=== PATIENT | male | born 1965 | race Caucasian/White ===

== ENCOUNTER → 2022-11-28 | Outpatient (CLI) | payer OTHER, SELFPAY ==
--- NOTE | 2022-11-28 11:09 | PFT ---
INTRODUCTION: The patient is a 57-year-old male who presents for pulmonary function studies secondary to a diagnosis of asthma. Respiratory therapy reported good patient effort. Bronchodilators were used during testing. INTERPRETATION: Forced expiration spirometry demonstrates no evidence of a large airways obstructive ventilatory defect. There was no significant response to aerosolized bronchodilators. Spirograms are of good quality and plateau normally. The respiratory flow-volume loop appears normal. Body plethysmography was performed and revealed lung volumes to be within normal limits. Diffusing capacity by single breath CO was also within normal limits. IMPRESSION: Grossly normal pulmonary function studies.
== END | disposition home or self-care (01) ==
LOC: PSN 07:58
PROVIDERS: Referring Provider Chiropractor; Visit Provider Chiropractor
DX: J45.998 Other asthma (principal)
CPT/HCPCS: 94060; 94726; 94729

== ENCOUNTER → 2023-03-23 | Outpatient (CLI) | payer OTHER, SELFPAY ==
--- NOTE | 2023-03-23 13:29 | CT_ITS ---
INDICATION: CHRONIC SINUSITIS EXAMINATION: CT FACIAL BONES - CT Maxillofacial W/O Contrast Injection TECHNIQUE: Helically acquired images were obtained of the facial bones. A radiation dose optimization technique was used for this scan. IV Contrast dosage and agent: None. RADIATION DOSAGE (If Supplied By Facility): CTDIvol = ( 33.06 ) mGy, DLP = ( 875.17 ) mGycm COMPARISON: No relevant prior comparison study available FINDINGS: SOFT TISSUES: No focal subcutaneous swelling. No discrete fluid collections. VISUALIZED PARANASAL SINUSES: There is mild opacification of the frontal, ethmoid and maxillary sinuses. There is a round low-attenuation focus within the left maxillary sinus which may reflect a mucous retention cyst or polyp. VISUALIZED MASTOID AIR CELLS: Clear. FACIAL BONES, MANDIBLE AND TMJs: No displaced facial bone fracture. No lytic or blastic abnormality. VISUALIZED DENTITION: No periodontal osseous erosion. ORBITAL CONTENTS: Both globes, extraocular muscles and retrobulbar fat appear unremarkable. CT/Sinus/Facial Bone IMPRESSION: Mild opacification of the frontal, ethmoid and maxillary sinuses consistent with a history of sinusitis. Electronically Signed: Desire Almonte MD at 14:24 EST ,
== END | disposition home or self-care (01) ==
LOC: CT 13:28
PROVIDERS: Referring Provider Otolaryngology; Visit Provider Otolaryngology
DX: J32.8 Other chronic sinusitis (principal); J30.89 Other allergic rhinitis
CPT/HCPCS: 70486

== ENCOUNTER → 2023-05-20 | Outpatient (CLI) | payer OTHER, SELFPAY ==
--- NOTE | 2023-05-20 10:42 | ECHOD_ITS ---
Reason For Study: Enlarged Heart, CP Procedure This was a 2D Doppler, Color Flow transthoracic echocardiogram. Exam performed in department. Left Ventricle Normal LV size. Left ventricular systolic function is normal. The estimated ejection fraction is 65 %. Stage 1 diastolic dysfunction. No regional wall motion abnormalities noted. Right Ventricle Normal RV size. Normal systolic function. Atria Normal left atrium. Normal right atrium. Bubble contrast study negative for right to left interatrial shunt. Mitral Valve Normal mitral valve. Mild (1+) eccentric mitral valve insufficiency. Tricuspid Valve Normal tricuspid valve. Mild tricuspid valve insufficiency. Pulmonary artery systolic pressure is 26 mmHg. Aortic Valve Normal aortic valve. Pulmonic Valve Normal pulmonic valve. Great Vessels Normal aortic root. The pulmonary artery is normal size. Normal inferior vena cava. Pericardium/Pleural No pericardial effusion. MMode/2D Measurements & Calculations LVIDd: 4.9 cm IVSd: 0.92 cm Ao root diam: 3.3 cm LVIDs: 3.3 cm LVPWd: 0.92 cm LA dimension: 3.8 cm RVDd: 4.1 cm FS: 32.9 % LAV(MOD-bp): 57.8 ml LVAd ap4: 32.9 cm2 SV(MOD-sp4): 65.3 ml LAV(MOD-bp) Indexed: 28.1 ml/m2 LVLd ap4: 8.5 cm LAV(MOD-sp2): 65.7 ml EDV(MOD-sp4): 103.2 ml LAV(MOD-sp4): 47.7 ml EDV(sp4-el): 108.1 ml LVAs ap4: 18.4 cm2 LVLs ap4: 7.4 cm ESV(MOD-sp4): 37.9 ml ESV(sp4-el): 38.9 ml EF(MOD-sp4): 63.3 % EF(sp4-el): 64.0 % SV(sp4-el): 69.2 ml LA A4 area: 17.7 cm2 RA A4 area: 16.2 cm2 TAPSE: 2.1 cm Time Measurements MV dec time: 0.17 sec Doppler Measurements & Calculations MV E max vicente: 70.1 cm/sec Lat Peak E' Vicente: 14.9 cm/sec Med Peak E' Vciente: 10.7 cm/sec MV A max vicente: 73.1 cm/sec E/E' lat: 4.7 E/E' med: 6.6 MV E/A: 0.96 MV V2 max: 67.0 cm/sec MV P1/2t max vicente: 67.4 cm/sec Ao V2 max: 137.4 cm/sec MV max P.8 mmHg MV P1/2t: 52.0 msec Ao max P.6 mmHg MV V2 mean: 35.1 cm/sec MV dec slope: 379.5 cm/sec2 Ao V2 mean: 91.9 cm/sec MV mean P.58 mmHg Ao mean P.9 mmHg MV V2 VTI: 19.5 cm MVA(P1/2t): 4.2 cm2 Ao V2 VTI: 33.1 cm AV (velocity ratio): 0.81 LV V1 max: 116.5 cm/sec MR max vicente: 524.4 cm/sec PA V2 max: 101.5 cm/sec LV V1 max P.4 mmHg MR max P.0 mmHg LV V1 mean P.0 mmHg LV V1 mean: 80.9 cm/sec LV V1 VTI: 26.9 cm PI dec slope: 115.2 cm/sec2 TR max vicente: 243.3 cm/sec TR max P.7 mmHg ECHO/Echo Complete Interpretation Summary Normal LV size. Left ventricular systolic function is normal. The estimated ejection fraction is 65 %. Stage 1 diastolic dysfunction. Pulmonary artery systolic pressure is 26 mmHg. Bubble contrast study negative for right to left interatrial shunt. Ordering Physician: Jose Hinkle Referring Physician: Jose Hinkle Performed By: Gopi Rogers RCS
--- NOTE | 2023-05-20 10:43 | EKG12_ITS ---
Test Reason : CP ENLARGED HEART Blood Pressure : / mmHG Vent. Rate : 065 BPM Atrial Rate : 065 BPM P-R Int : 170 ms QRS Dur : 098 ms QT Int : 400 ms P-R-T Axes : 073 051 060 degrees QTc Int : 416 ms Normal sinus rhythm Normal ECG Confirmed by EDITH PERLA, HEVER ([id number]), continuity editor YOLIS CURIEL ([id number]) on 05/21/2023 7:04:45 AM Referred By: Jose Hinkle Confirmed By:HEVER SHARMA MD
--- OUTSIDE RECORDS SUMMARY | 2023-05-20 11:00 | XMS RPT_ITS | CCD ---
Author Name Unknown Address [address] [place] [address] Organization [facility] Care Team Providers Care Product Development Assistant Name Role Phone Dr. Duke Wagner Attending Unavailable Ms. Lynda Hurtado Primary Care Unavaila damian PROVIDER, UNKNOWN Attending Unavailable PROVIDER, UNKNOWN Admitting Unavailable GIGI MARRUFO Referring Unavailable Lynda Hurtado CNP Primary Care Provider LYNDA HURTADO Primary Care Unavailable PETAR AGUSTIN Attending Unavail LYNDA Ayala Primary Care Unavailable PETAR AGUSTIN Referring Unavail able PETAR AGUSTIN Admitting Unavail able LYNDA HURTADO Primary Care Unavailable JING RAVI Attending Unavailable JESUS COPELAND Attending Unavailab LYNDA Steele Primary Care Unavailable Allergies Allergy Classification Reported Allergen(s) Allergy Type Date of Onset Reaction(s) Facility (6 sources) Amoxicillin / Clavulanate; Translations: [AMOXICILLIN-POT CLAVULANATE] Drug Allergy 01-07-2021 GI Intolerance [facility] (6 sources) metroNIDAZOLE; Translations: [METRONIDAZOLE IN NACL (ISO-OS)] Drug Allergy 01-10-2021 Rash [facility] Medications Current Medications Medication Drug Class(es) Dates Sig (Normalized) Sig (Original) amLODIPine 5 mg oral tablet (3 sources) Dihydropyridine Calcium Channel Brandyn take 1 tablet by mouth once daily amLODIPine (NORVASC) 5 MG tablet Take 1 (one) tablet (5 mg total) by mouth daily . 0 Active ascorbic acid 100 mg oral tablet (3 sources) Vitamin C take 1 tablet by mouth once daily ascorbic acid, vitamin C, (vitamin C) 100 MG tablet Take 1 (one) tablet (100 mg total) by mouth daily . 0 Active dicyclomine hydrochloride 20 mg oral tablet (3 sources) Anticholinergic Start: 01-10-2021 take 1 tablet by mouth four times daily before mealtime dicyclomine (BENTYL) 20 mg tablet Take 1 (one) tablet (20 mg total) by mouth 4 (four) times a day before meals and nightly . 120 tablet 0 01/10/2021 Active ergocalciferol 1.25 mg oral capsule (3 sources) Provitamin D2 Compound take 1 capsule by mouth every week ergocalciferol (Vitamin D2) 1,250 mcg (50,000 unit) capsule Take 1 (one) capsule (50,000 Units total) by mouth once a week . 0 Active omega-3 fatty acids/fish oil (fish oil-omega-3 fatty acids) 300-1,000 mg capsule (3 sources) take 2 capsules by mouth once daily omega-3 fatty acids/fish oil (fish oil-omega-3 fatty acids) 300-1,000 mg capsule Take 2 (two) capsules by mouth daily . 0 Active ondansetron 4 mg disintegrating oral tablet (3 sources) Serotonin-3 Receptor Antagonist Start: 01-10-2021 take 1 tablet by mouth every eight hours as needed ondansetron (Zofran ODT) 4 MG disintegrating tablet Dissolve 1 (one) tablet (4 mg total) on top of tongue every 8 (eight) hours as needed . 20 tablet 0 01/10/2021 Active predniSONE 20 mg oral tablet (3 sources) Start: 12-08-2022 predniSONE (DELTASONE) 20 MG tablet Indications: Acute cough , Wheezing Take 2 tablets daily for 5 days. . 10 tablet 0 12/08/2022 Active rosuvastatin calcium 20 mg oral tablet (3 sources) HMG-CoA Reductase Inhibitor take 1 tablet by mouth once daily rosuvastatin (CRESTOR) 20 MG tablet Take 1 (one) tablet (20 mg total) by mouth daily . 0 Active ubidecarenone 30 mg oral capsule (3 sources) take 1 capsule by mouth once daily co-enzyme Q-10 30 mg capsule Take 1 (one) capsule (30 mg total) by mouth daily . 0 Active Problems Active Problems Problem Classification Problem Date Documented Date Episodic/Chronic Asthma (1 source) Asthma; Translations: [Unspecified asthma, uncomplicated] 01-16-2023 Chronic Noninfectious gastroenteritis (2 sources) Noninfective gastroenteritis and colitis, unspecified; Translations: [Noninfective gastroenteritis and colitis, unspecified] Onset: 10-13-2023 Episodic Nonspecific chest pain (4 sources) Atypical chest pain; Translations: [Other chest pain] Onset: 12-08-2022 12-08-2022 Episodic Osteoarthritis (1 source) Primary osteoarthritis, right wrist; Translations: [Primary osteoarthritis, right wrist] Onset: 07-04-2021 Chronic Other circulatory disease (2 sources) Elevated blood pressure; Translations: [Elevated blood-pressure reading, without diagnosis of hypertension] 12-08-2022 Episodic Other circulatory disease (2 sources) Elevated blood-pressure reading, without diagnosis of hypertension; Translations: [Elevated blood-pressure reading, without diagnosis of hypertension] Onset: 12-08-2022 Episodic Other lower respiratory disease (1 source) Dyspnea, unspecified; Translations: [Dyspnea, unspecified] Onset: 04-02-2022 Episodic Other lower respiratory disease (2 sources) Cough; Translations: [Acute cough] 12-08-2022 Episodic Other lower respiratory disease (3 sources) Wheezing; Translations: [Wheezing] Onset: 12-08-2022 12-08-2022 Episodic Other lower respiratory disease (1 source) Wheezing; Translations: [Wheezing] Onset: 12-08-2022 Episodic Other nervous system disorders (2 sources) Carpal tunnel syndrome, right upper limb; Translations: [Carpal tunnel syndrome, right upper limb] Onset: 07-04-2021 Chronic Unclassified (1 source) Acute cough; Translations: [Acute cough] Onset: 12-08-2022 Past or Other Problems Problem Classification Problem Date Documented Da te Episodic/Chronic Other connective tissue disease (1 source) Ganglion, right wrist; Translations: [Ganglion, right wrist] Onset: 07-04-2021 Episodic Other connective tissue disease (1 source) Other specified disorders of tendon, right wrist; Translations: [Other specified disorders of tendon, right wrist] Onset: 07-04-2021 Episodic Unclassified (1 source) Acute cough; Translations: [Acute cough] Onset: 12-08-2022 Results Test Name Value Interpretation Reference Range Facil ity Vital Signs Date Time Vital Sign Value Performing Clinician Alyson osborne 12-08-2022 14:15-0400 Diastolic blood pressure 83 mm[Hg] Petar Agustin CNP Work Phone: [facility] Encounters Encounter Date Encounter Type Care Provider Facility Start: 02-13-2023 End: 02-13-2023 Emergency department patient visit LYNDA MORLEY [facility] Start: 01-31-2023 ambulatory JESUS OLIVAS SIVAKUMARYANIRAMAURICE O [facility] Ambulatory Start: 01-16-2023 Orders Only Jesus Olivas Palma win [employer] Work Phone: [facility] Pulmonary Physicians Procedures Date Procedure Procedure Detail Performing Clinician Start: 12-08-2022 Radiologic exam ches t 2 views Petar Agustin [employer] Work Phone: Plan of Treatment Date Care Activity Detail Author Start: 01-02-2023 Influenza vaccination Sequential Influenza Vaccine (#1) [facility] Start: 07-07-2015 Administration of herpes zoster vaccine Zoster Vaccines (1 of 2) [facility] Start: 07-07-2015 Screening for malignant neoplasm of colon Flexible sigmoidoscopy [facility] Start: 07-07-1983 Hepatitis C screening Hepatitis C Screening [facility] Start: 1980 HIV screening HIV Screening [facility] Start: 1977 Depression screening using PHQ-9 (Patient Health Questionnaire 9) score Depression Screening (PHQ-2/9) [facility] Start: 1968 History and physical examination, annual for health maintenance Wellness Visit [facility] Start: 01-06-1966 COVID-19 Vaccine (#1) COVID-19 Vaccine (#1) [facility] Start: 1965 Prostate specific antigen measurement PSA Level [facility] Start: 1965 Screening for malignant neoplasm of colon [facility] Start: 1965 Tetanus vaccination Tetanus: Every 10yrs [facility] End: 01-17-2024 Complete PFT with Pre and Post Bronchodilator Complete PFT with Pre and Post Bronchodilator PFT Routine Asthma, unspecified asthma severity, unspecified whether complicated, unspecified whether persistent 1 Occurrences starting 01/16/2023 until 01/17/2024 [facility] Work Phone: Payers Date Payer Category Payer Unknown [id number] 2021 Unknown [id number] 1965 Unknown [id number] 1965 Unknown [id number] 1965 Unknown [id number] [id number]. [id number] 1965 Unknown [id number] [id number]. [id number] 1965 Unknown [id number] [id number]. [id number] Social History Date Type Detail Facility Start: 12-08-2022 Tobacco smoking status NHIS Ex-smoke r [facility] of tobacco use [facility] Start: 12-08-2022 Tobacco use and exposure Smokeless t obacco non-user [facility] Start: 12-08-2022 Alcohol intake Current drinke r of alcohol (finding) [facility] Start: 06-12-2021 End: 12-08-2022 History of Social function [facility] Start: 06-12-2021 End: 12-08-2022 Tobacco use panel [facility] Start: 1965 Sex Assigned At Not on file [facility] Start: 01-07-2021 Gender identity Identifies as male gender (finding) [facility] Start: 01-07-2021 Sexual orientation Choose not to dis close [facility] Instructions 12-08-2022 Patient InstructionsAttachments Note Date & Type Note Facility 12-08-2022 Instructions Petar Agustin CNP - 12/08/2022 2:12 PM EDT Thank you for choosing [place] for your healthcare needs today. Thank you for your service. Your chest is negative for infiltrates. I sent in prednisone. Take early with food to prevent insomnia and indigestion. Continue use of your inhaler. Follow up with your doctor for elevated blood pressure reading. Follow up as needed persistent/worsening of cough. The following attachments cannot be sent through Care Everywhere.Cough (Persian)documented in this encounter [facility] History of Present illness Narrative 12-08-2022 Petar Agustin CNP - 12/08/2022 1:35 PM EDT Note Date & Type Note Facility 12-08-2022 History of Presen t illness Narrative Images from the original note were not included. Patient Name: [facility] Urgent Care Location: [facility] [address] [place] [id number] Date Of : Date Of Visit: 1965 12/08/2022 MRN# Provider: [id number] Petar Agustin CNP Chief Complaint Patient presents with URI Congestion, productive cough, x 2 weeks, worsening over cough, hx of bronchitis, fatigue, drainage, tightness in chest, burning in chest Assessment & Plan 1. Atypical chest pain XR Chest AP/PA and LAT 2. Acute cough XR Chest AP/PA and LAT predniSONE (DELTASONE) 20 MG tablet 3. Wheezing XR Chest AP/PA and LAT predniSONE (DELTASONE) 20 MG tablet 4. Elevated blood pressure reading No follow-ups on file. Medical Decision Making Client is pleasant, non-toxic in NAD with report of worsening cough for several weeks. Productive at times with wheezing and SOB. Using albuterol. [place] sent client to clinic for chest film. Blood pressure elevated in clinic. Reviewed allergies. Former smoker. See H&P Chest XR - appears normal Prednisone, (Albuterol) Additional Clinical Comments X-ray Documentation: I have personally reviewed the images. My impression is no infiltrates. Radiology over-read pending. Instructed on use/AE of medication. Follow up PCP elevated blood pressure reading. See AVS Subjective 57 y.o. male presents with URI (Congestion, productive cough, x 2 weeks, worsening over cough, hx of bronchitis, fatigue, drainage, tightness in chest, burning in chest ) Client ill for two weeks with productive cough and chest congestion, fatigue and drainage. URI This is a new problem. The current episode started 1 to 4 weeks ago. The problem has been gradually worsening. There has been no fever. Associated symptoms include chest pain, coughing and rhinorrhea. Pertinent negatives include no congestion, sore throat or wheezing. Review Of Systems Review of Systems Constitutional: Positive for fatigue. HENT: Positive for rhinorrhea. Negative for congestion, postnasal drip and sore throat. Respiratory: Positive for cough. Negative for shortness of breath and wheezing. Cardiovascular: Positive for chest pain. Burning in chest with cough. Medical History Past Medical History: Diagnosis Date Diverticulitis High cholesterol Prostatitis Past Surgical History: Procedure Laterality Date APPENDECTOMY CARPAL TUNNEL RELEASE OPEN 2022 RHINOPLASTY TONSILLECTOMY There is no problem list on file for this patient. Social History Social History Tobacco Use Smoking status: Former Smokeless tobacco: Never Vaping Use Vaping Use: Never used Substance Use Topics Alcohol use: Yes Drug use: Never Family History No family history on file. Objective Physical Exam BP (!) 166/96 (BP Location: Right arm, Patient Position: Sitting) Pulse 68 Temp 98.2 F (36.8 C) (Oral) Resp 16 Ht 6' Wt 84.4 kg (186 lb) SpO2 97% BMI 25.23 kg/m Vision/Hearing Exam:No results found. Physical Exam Vitals and nursing note reviewed. Constitutional: General: He is not in acute distress. Appearance: Normal appearance. He is not ill-appearing, toxic-appearing or diaphoretic. HENT: Head: Normocephalic and atraumatic. Right Ear: Tympanic membrane, ear canal and external ear normal. Left Ear: Tympanic membrane, ear canal and external ear normal. Nose: Nose normal. Mouth/Throat: Mouth: Mucous membranes are moist. Pharynx: Oropharynx is clear. Cardiovascular: Rate and Rhythm: Normal rate and regular rhythm. Heart sounds: Normal heart sounds. Pulmonary: Effort: Pulmonary effort is normal. No respiratory distress. Breath sounds: Normal breath sounds. No wheezing or rales. Skin: General: Skin is warm and dry. Neurological: Mental Status: He is alert. Psychiatric: Mood and Affect: Mood normal. Behavior: Behavior normal. Procedure Notes Procedures Results No results found for this or any previous visit (from the past 168 hour(s)). XR Chest AP/PA and LAT Final Result 1. No acute cardiopulmonary disease. Workstation ID: [id number] Orders Placed This Visit Orders Placed This Encounter Procedures XR Chest AP/PA and LAT Medication List At End Of Visit Current Outpatient Medications Medication Sig Dispense Refill amLODIPine (NORVASC) 5 MG tablet Take 1 (one) tablet (5 mg total) by mouth daily . ascorbic acid, vitamin C, (vitamin C) 100 MG tablet Take 1 (one) tablet (100 mg total) by mouth daily . co-enzyme Q-10 30 mg capsule Take 1 (one) capsule (30 mg total) by mouth daily . ergocalciferol (Vitamin D2) 1,250 mcg (50,000 unit) capsule Take 1 (one) capsule (50,000 Units total) by mouth once a week . omega-3 fatty acids/fish oil (fish oil-omega-3 fatty acids) 300-1,000 mg capsule Take 2 (two) capsules by mouth daily . rosuvastatin (CRESTOR) 20 MG tablet Take 1 (one) tablet (20 mg total) by mouth daily . dicyclomine (BENTYL) 20 mg tablet Take 1 (one) tablet (20 mg total) by mouth 4 (four) times a day before meals and nightly . 120 tablet 0 ondansetron (Zofran ODT) 4 MG disintegrating tablet Dissolve 1 (one) tablet (4 mg total) on top of tongue every 8 (eight) hours as needed . 20 tablet 0 predniSONE (DELTASONE) 20 MG tablet Take 2 tablets daily for 5 days. . 10 tablet 0 No current facility-administered medications for this visit. Patient Instructions Thank you for choosing [facility] for your healthcare needs today. Thank you for your service. Your chest is negative for infiltrates. I sent in prednisone. Take early with food to prevent insomnia and indigestion. Continue use of your inhaler. Follow up with your doctor for elevated blood pressure reading. Follow up as needed persistent/worsening of cough. documented in this encounter [facility] Evaluation note Note Date & Type Note Facility documented in this encounter [facility] Evaluation note Note Date & Type Note Facility documented in this encounter [facility] Summary Purpose Family History No Family History Records FoundNo Family History Records FoundNo Family History Records FoundNo Family History Records FoundNo Family History Records Found Advance Directives No Advanced Directives Records FoundNo Advanced Directives Records FoundNo Advanced Directives Records FoundNo Advanced Directives Records FoundNo Advanced Directives Records Found Reason for Referral Specialty Diagnoses / Procedures Referred By Contac t Referred To Contact Pulmonology Diagnoses Asthma, unspecified asthma severity, unspecified whether complicated, unspecified whether persistent Procedures Complete PFT with Pre and Post Bronchodilator Jesus Copeland, EDYTA [address] [address] Referral ID Status Reason Start Date Expiration Date V isits Requested Visits Authorized [id number] Authorized 01/16/2023 01/16/2024 1 1 Additional Source Comments (unrecognized sect ion and content) No Status Records FoundNo Status Records FoundNo Status Records FoundNo Status Records FoundNo Status Records Found INFORMATION SOURCE (unrecogn ized section and content) DATE CREATED AUTHOR AUTHOR'S ORGANIZ ATION 04/04/2022 [facility] DATE CREATED AUTHOR AUTHOR'S ORGANIZ ATION 12/13/2022 [facility] DATE CREATED AUTHOR AUTHOR'S ORGANIZ ATION 02/20/2023 [facility] DATE CREATED AUTHOR AUTHOR'S ORGANIZ ATION 03/04/2023 [facility] Reason for Visit (unrecogniz ed section and content) Care Teams (unrecognized sec tion and content) Product Development Assistant Relationship Specialty Start Date End Date Lynda Hurtado CNP [address] [place] [address] PCP - General Family Medicine 01/07/21 FOR RECORDS PERTAINING TO PATIENTS WHO ARE OR HAVE BEEN ENROLLED IN A CHEMICAL DEPENDENCY/SUBSTANCEABUSE PROGRAM, SOME INFORMATION MAY BE OMITTED. This clinical summary was aggregated from multiple sources. Caution should be exercised in using it in the provision of clinical care. This summary normalizes information from multiple sources, and as a consequence, information in this document may materially change the coding, format and clinical context of patient data. In addition, data may be omitted in some cases. CLINICAL DECISIONS SHOULD BE BASED ON THE PRIMARY CLINICAL RECORDS. [facility] [employer] [facility]. provides no warranty or guarantee of the accuracy or completeness of information in this document.
[2023-05-20 13:07] LABS: AST(SGOT) 28 U/L (15-37); Alanine Aminotransfer ALT/SGPT 33 U/L (16-61); Albumin, Serum 4.1 g/dL (3.2-5.0); Alkaline Phosphatase 78 U/L (45-117); Bilirubin, Direct 0.35 mg/dL (0.00-0.30); Globulin 3.8 g/dL (2.2-4.2); Protein, Total 7.9 g/dL (6.4-8.2)
== END | disposition home or self-care (01) ==
PROVIDERS: Referring Provider Chiropractor; Visit Provider Chiropractor
DX: R07.9 Chest pain, unspecified (principal)
CPT/HCPCS: 36415; 80076; 93005; 93306; A4216

== ENCOUNTER 2024-11-20 12:37 | Emergency (ER) | payer OTHER, SELFPAY ==
[2024-11-20 12:37] VITALS: BP 151/86; PULSE 60; RESP 16; TEMP 36.7; O2SAT 100; BMI 25.6
--- NOTE | 2024-11-20 13:23 | EDS_ITS ---
HPI History of Present Illness Chief Complaint: Eye Problem Informant: patient Onset/Context/Timing Location: Right Eye Onset: Today and Yesterday Context: Gradual Onset Timing: Continuous Current Severity: Mild Maximum Severity: Mild Associated Symptoms Associated Symptoms - Eyes: Foreign body sensation History of injury: No Visual correction: Glasses Narrative Narrative: 59-year-old male with glasses no contacts. Was cutting his grass yesterday. Feels like he has a foreign body in his right eye. Says irritated. Denies any vision change. No direct trauma that he is aware of. Does not wear contacts nor does he have any eye surgery. Prior similar symptoms: No Recent Illness/Hospitalization: No PFSH PFSH Medical History no medical history no medical history Allergy/AdvReac Type Severity Reaction Status Date / Time amoxicillin (From Augmentin) Allergy Intermediate Nausea/Vom/ Verified 11/20/24 12:38 Diarrhea clavulanic acid (From Allergy Intermediate Nausea/Vom/ Verified 11/20/24 12:38 Augmentin) Diarrhea metronidazole (From Flagyl) Allergy Intermediate Rash Verified 11/20/24 12:38 Social History Smoking Status: Never smoker ROS ROS ED Constitutional Constitutional ED: Denies fever(s) Eyes Eyes: Denies blurry vision ENT ENT ED: Denies ear pain Cardiovascular Cardiovascular: Denies chest pain or palpitations Respiratory/Chest Respiratory/Chest: Denies cough or dyspnea Gastrointestinal Gastrointestinal: Denies abdominal pain Genitourinary Genitourinary ED: Denies dysuria or hematuria Musculoskeletal Musculoskeletal: Denies arthralgias Integumentary Denies abscess or Abrasions Psychiatric Psychiatric: Denies anxiety Endocrine Endocrinology: Denies polydipsia or polyphagia Hematologic/Lymphatic Hematologic/Lymphatic: Denies easy bleeding or easy bruising Allergic/Immunologic Allergic/Immunologic ED: Denies mouth swelling, tongue swelling or urticaria EXAM Physical Exam Narrative Exam Narrative: 59-year-old male sitting upright in bed. Vitals slightly elevated. H EENT exam pupils round reactive light extra motions are intact. There is no watering. No swelling. No discharge. No orbital or periorbital swelling. No cellulitis. No preauricular lymphadenopathy. Upper and lower lids are unremarkable. Const Vital Signs: 11/20/24 12:37 Temperature 98.1 F Temperature Source Oral Pulse Rate 60 Respiratory Rate 16 Blood Pressure 151/86 H Blood Pressure Mean 107 Pulse Ox 100 Oxygen Delivery Method Room Air Positive well nourished and well developed; Negative for cachectic, contractures or unkempt General Appearance ED: well developed and NAD; Negative for unkempt, cachectic or contractures Nutritional Appearance: Negative for cachectic HEENT atraumatic Neck no lymphadenopathy, supple and no JVD Resp normal respiratory effort, no retractions, no use of accessory muscles and clear to auscultation bilaterally Cardio regular rate, regular rhythm, S1 normal heart sound, S2 normal heart sound and no murmurs GI non-tender, non-distended and no masses Back/Spine no CVA tenderness Extremity normal to inspection General Extremety ED: Negative for edema or other findings General Extremity: Negative for edema or other findings Neuro oriented x3, CN's II-XII intact bilaterally, moves all extremities and no sensory deficits noted Sensorium / Orientation: alert, oriented to person, oriented to place and orient ed to time Motor Exam: strength 5/5 throughout Psych Appearance: Negative for unkempt Skin no wounds Lesions: no lesions Rashes: no rashes MDM MDM MDM Narrative Medical decision making narrative: 59-year-old male right eye possible foreign body. Tetracaine slit-lamp exam of the right eye with fluorescein stain. Examination of his right eye. I placed tetracaine and then foreseen. He had small speck of either dirt or something under his right eyelid that I removed. A small corneal abrasion around 9:00. There is no perforation. No ulcer. There is some mild redness due to irritation on the lateral aspect of his right sclera. No purulent discharge. History & Record Review Discussion w/independent historian: Patient and Family Discharge Plan Triage Chief Complaint: Eye Problem ED Provider: Ángel Villa Dx/Rx/DC Orders Clinical Impression: Foreign body in eyeball, right, Abrasion, corneal Instructions: ED Corneal Abrasion, ED Corneal Foreign Body, Removed [facility] Care Provider: [facility] Referrals: Jose Fernandez MD [Med Staff - Active Staff] - 1-2 Days if not improving [facility],[place] [Primary Care Provider] - Activity Restrictions/Additional Instructions: Antibiotic ointment twice a day is put on your lower lid small amount. Helps lubricate the eye and prevent secondary infection. The tetracaine drops she can use in the next 24 hours after that you to stop use them because it can retard healing. That is for discomfort. Use sunglasses to prevent glare. Follow-up with the eye doctor if not getting better. I did remove a small foreign body and you have a small corneal abrasion around 9:00. That should heal quickly in the next several days. Print Language: Citizen Of [place] Disposition Disposition: Home, Self Care
[2024-11-20] MEDS: Tetracaine 0.5% Ophthalmic Bottle 1 DRP RIGHT EYE (13:36)
[2024-11-20 14:25] VITALS: BP 161/77; PULSE 78; RESP 16; TEMP 36.3; O2SAT 100
[2024-11-20] MEDS: Bacitracin/Polymin B Sulfate 3.5 GM OPTH.TUBE 1 APPLIC RIGHT EYE (14:26)
--- OUTSIDE RECORDS SUMMARY | 2024-11-20 14:29 | XMS RPT_ITS | CCD ---
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 Simba Wagner Attending Unavailable Ms. Lynda Hurtado Primary Care Unavaila ble PROVIDER, UNKNOWN Attending Unavailable PROVIDER, UNKNOWN Admitting Unavailable GIGI MARRUFO Referring Unavailable Dr. Jose Hinkle Referring Provider Dr. Jose Hinkle Other Provider [place] Primary Care Provider UnavailDr. Charles García Attending Provider Lynda Hurtado CNP Primary Care Provider LYNDA HURTADO Primary Care Unavailable PETAR AGUSTIN Attending Unavail able LYNDA HURTADO Primary Care Unavailable NIKOLE PETAR ROCIO Referring Unavail able PETAR AGUSTIN Admitting Unavail able LYNDA HURTADO Primary Care Unavailable JING RAVI Attending Unavailable JESUS COPELAND Attending Unavailab LYNDA Steele Primary Care Unavailable Dr. Jose Hinkle Referring Provider [phone] Dr. Jose Hinkle Other Provider [place] Primary Care Provider UnavailDr. Charles García Attending Provider [phone] [place] Primary Care Provider UnavailDr. Sterling Verdugo Attending Provider [place] Primary Care Unavailable Sterling Ch Attending Unavailable Jose Hinkle Attending Unavailable [place] Primary Care Unavailable Jose Hinkle Referring Unavailable Waqar Manuel Referring UnavailWaqar Toth [place] Un[place] Lynda Rosario Primary Care Provid er REJI LYNDA MORLEY Primary Care Unavailable SAL HENSLEY Attending Unavailable SAL HENSLEY Admitting Unavailable Allergies Allergy Classification Reported Allergen(s) Allergy Type Date of Onset Reaction(s) Facility (8 sources) Amoxicillin / Clavulanate; Translations: [AMOXICILLIN-POT CLAVULANATE] Drug Allergy 1 GI Intolerance, Diarrhea, GI Upset [facility] (7 sources) metroNIDAZOLE; Translations: [METRONIDAZOLE IN NACL (ISO-OS)] Drug Allergy 1 Rash, Hives [facility] (1 source) metroNIDAZOLE; Translations: [METRONIDAZOLE] Drug Allergy [address] [facility] 2 Repository Medications Current Medications Medication Drug Class(es) Dates Sig (Normalized) Sig (Original) [id number] 200 actuat albuterol 0.09 mg/actuat metered dose inhaler (1 source) beta2-Adrenergic Agonist Start: 01-11-2024 take 2 puff(s) by inhalation every six hours albuterol 90 mcg/actuation inhaler Inhale 2 puffs every 6 hours if needed for shortness of breath. 01/11/2024 Active amLODIPine 5 mg oral tablet (5 sources) Dihydropyridine Calcium Channel Brandyn Start: 07-14-2024 take 5 mg by mouth once daily 5 mg, oral, Daily, First dose on Thu09/26/24 at 0900 take 1 tablet by mouth once ariel y amLODIPine (NORVASC) 5 MG tablet Take 1 (one) tablet (5 mg total) by mouth daily . 0 Active ascorbic acid 100 mg oral tablet (4 sources) Vitamin C take 1 tablet by mouth once daily ascorbic acid (Vitamin C) 100 mg tablet Take 1 tablet (100 mg) by mouth once daily. Active ciprofloxacin 500 mg oral tablet (3 sources) Quinolone Antimicrobial Start: 09-27-19 End: 10-07-19 take 1 tablet by mouth twice daily ciprofloxacin (Cipro) 500 mg tablet Indications: Cellulitis of right upper extremity Take 1 tablet (500 mg) by mouth 2 times a day for 10 days. 20 tablet 09/26/2024 10/06/2024 Active Start: 09-26-2024 take 400 mg intraven ously every twelve hours 400 mg, intravenous, at 200 mL/hr, Administer over 60 Minutes, Every 12 hours, First dose (after last reorder) on Thu09/26/24 at 1200, premix bag, Dosing of this medication varies based on severity of illness. Does this patient have sepsis or concern for sepsis (probable or documented infection plus systemic manifestations of infection)? No, Suspected Indication (Select all that apply): Cellulitis, Skin and Soft Tissue, Indications: Cellulitis, Skin and Soft Tissue Start: 09-26-2024 End: 09-26-2024 400 mg, intravenous, at 200 mL/hr, Administer over 60 Minutes, Once, On Thu09/26/24 at 0035, For 1 dose, premix bag, Dosing of this medication varies based on severity of illness. Does this patient have sepsis or concern for sepsis (probable or documented infection plus systemic manifestations of infection)? No, Suspected Indication (Select all that apply): Cellulitis, Skin and Soft Tissue, Indications: Cellulitis, Skin and Soft Tissue clindamycin 300 mg oral capsule (3 sources) Lincosamide Antibacterial Start: 09-26-2024 End: 10-06-2024 take 1 capsule by mouth four times daily clindamycin (Cleocin) 300 mg capsule Indications: Cellulitis of right upper extremity Take 1 capsule (300 mg) by mouth 4 times a day for 10 days. 40 capsule 09/26/2024 10/06/2024 Active Start: 09-26-2024 take 600 mg intraven ously every eight hours 600 mg, intravenous, at 100 mL/hr, Administer over 30 Minutes, Every 8 hours, First dose (after last reorder) on Thu09/26/24 at 0800, premix bag, Dosing of this medication varies based on severity of illness. Does this patient have sepsis or concern for sepsis (probable or documented infection plus systemic manifestations of infection)? No, Suspected Indication (Select all that apply): Cellulitis, Skin and Soft Tissue, Type of Therapy: Empiric, Indications: Cellulitis, Skin and Soft Tissue Start: 09-26-2024 End: 09-26-2024 600 mg, intravenous, at 100 mL/hr, Administer over 30 Minutes, Once, On Thu09/26/24 at 0035, For 1 dose, premix bag, Dosing of this medication varies based on severity of illness. Does this patient have sepsis or concern for sepsis (probable or documented infection plus systemic manifestations of infection)? No, Suspected Indication (Select all that apply): Cellulitis, Skin and Soft Tissue, Indications: Cellulitis, Skin and Soft Tissue dicyclomine hydrochloride 20 mg oral tablet (3 sources) Anticholinergic Start: 01-10-2021 take 1 tablet by mouth four times daily before mealtime dicyclomine (BENTYL) 20 mg tablet Take 1 (one) tablet (20 mg total) by mouth 4 (four) times a day before meals and nightly . 120 tablet 0 01/10/2021 Active ergocalciferol 1.25 mg oral capsule (5 sources) Provitamin D2 Compound Start: 09-26-2024 1.25 mg, oral, Every 7 days, First dose on Thu09/26/24 at 0900 ergocalciferol ( Vitamin D-2) 1250 mcg (50,000 units) capsule Take 1 capsule (50,000 Units) by mouth every 7 days. Active take 1 capsule by mouth every we ek ergocalciferol (Vitamin D2) 1,250 mcg (50,000 unit) capsule Take 1 (one) capsule (50,000 Units total) by mouth once a week . 0 Active ibuprofen 400 mg oral tablet (1 source) Nonsteroidal Anti-inflammatory Drug Start: 09-26-2024 take 1 tablet by mouth every six hours as needed 400 mg, oral, Every 6 hours PRN, pain mild (1-3), first line, pain moderate (4-6), first line, Starting on Thu09/26/24 at 0315, May administer with food to reduce GI upset. omega-3 fatty acids-fish oil 300-1,000 mg capsule (1 source) take 2 capsules by mouth once daily omega-3 fatty acids-fish oil 300-1,000 mg capsule Take 2 capsules (2,000 mg) by mouth once daily. Active omega-3 fatty acids/fish oil (fish oil-omega-3 fatty acids) 300-1,000 mg capsule (3 sources) take 2 capsules by mouth once daily omega-3 fatty acids/fish oil (fish oil-omega-3 fatty acids) 300-1,000 mg capsule Take 2 (two) capsules by mouth daily . 0 Active omeprazole 20 mg delayed release oral capsule (1 source) Proton Pump Inhibitor take 1 capsule by mouth every other day omeprazole (PriLOSEC) [address] capsule Take 1 capsule (20 mg) by mouth every other day. Do not crush or chew. Active ondansetron 4 mg disintegrating oral tablet (3 sources) Serotonin-3 Receptor Antagonist Start: 01-10-2021 take 1 tablet by mouth every eight hours as needed ondansetron (Zofran ODT) 4 MG disintegrating tablet Dissolve 1 (one) tablet (4 mg total) on top of tongue every 8 (eight) hours as needed . 20 tablet 0 01/10/2021 Active pantoprazole 40 mg delayed release oral tablet (2 sources) Proton Pump Inhibitor Start: 09-29-2024 40 mg, oral, Every 48 hours, First dose (after last modification) on Thu09/29/24 at 0700, Do not crush, chew, or split. Start: 09-26-2024 End: 09-27-2024 take 40 mg by mouth once daily before breakfast 40 mg, oral, Daily before breakfast, First dose on Thu09/26/24 at 0700, Do not crush, chew, or split. predniSONE 20 mg oral tablet (3 sources) Start: 12-08-2022 predniSONE (DELTASONE) 20 MG tablet Indications: Acute cough , Wheezing Take 2 tablets daily for 5 days. . 10 tablet 0 12/08/2022 Active rosuvastatin calcium 20 mg oral tablet (5 sources) HMG-CoA Reductase Inhibitor Start: 04-04-2024 take 20 mg by mouth once daily 20 mg, oral, Daily, First dose on Thu09/26/24 at 0900 take 1 tablet by mouth once ariel y rosuvastatin (CRESTOR) 20 MG tablet Take 1 (one) tablet (20 mg total) by mouth daily . 0 Active ubidecarenone 30 mg oral capsule (3 sources) take 1 capsule by mouth once daily co-enzyme Q-10 30 mg capsule Take 1 (one) capsule (30 mg total) by mouth daily . 0 Active zolpidem tartrate 5 mg oral tablet (2 sources) gamma-Aminobutyri c Acid-ergic Agonist Start: 09-27-2024 take 5 mg by mouth once daily as needed for sleep 5 mg, oral, Nightly PRN, sleep, Starting on Thu09/27/24 at 1948 Start: 09-26-2024 End: 09-27-2024 take 10 mg by mouth once 10 mg, oral, Once, On Thu at 2215, For 1 dose Problems Active Problems Problem Classification Problem Date Documented Date Episodic/Chronic Asthma (1 source) Asthma; Translations: [Unspecified asthma, uncomplicated] 01-16-2023 Chronic E Codes: Natural/environment (3 sources) Dog bite - wound; Translations: [Bitten by dog, initial encounter] Onset: 09-26-2024 09-26-2024 Episodic Noninfectious gastroenteritis (2 sources) Noninfective gastroenteritis and colitis, unspecified; Translations: [Noninfective gastroenteritis and colitis, unspecified] Onset: 02-13-2023 Episodic Osteoarthritis (1 source) Primary osteoarthritis, 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, right upper limb] Onset: 07-04-2021 Chronic Other upper respiratory infections (1 source) Other chronic sinusitis; Translations: [Other chronic sinusitis] Onset: 02-02-2024 Chronic Skin and subcutaneous tissue infections (7 sources) Cellulitis of right upper limb; Translations: [Cellulitis of right upper limb] Onset: 09-26-2024 Resolved: 09-28-2024 09-26-2024 Episodic Unclassified (1 source) Acute cough; Translations: [Acute cough] Onset: 12-08-2022 Past or Other Problems Problem Classification Problem Date Documented Da te Episodic/Chronic Nonspecific chest pain (5 sources) Atypical chest pain; Translations: [Other chest pain] Onset: 12-08-2022 12-08-2022 Episodic Other connective tissue disease (1 source) Ganglion, right wrist; Translations: [Ganglion, right wrist] Onset: 07-04-2021 Episodic Other connective tissue disease (1 source) Other specified disorders of tendon, right wrist; Translations: [Other specified disorders of tendon, right wrist] Onset: 07-04-2021 Episodic Unclassified (1 source) Acute cough; Translations: [Acute cough] Onset: 12-08-2022 Results Test Name Value Interpretation Reference Range Facility Basic metabolic 2000 panelon 09-28-2024 Anion gap [Moles/Vol] 12 mmol/L 10 - 2 0 mmol/L [facility] Calcium [Mass/Vol] 9.3 mg/dL 8.6 - 10. 3 mg/dL [facility] Chloride [Moles/Vol] 104 mmol/L 98 - 10 7 mmol/L [facility] CO2 [Moles/Vol] 25 mmol/L 21 - 32 mmol/L [facility] Creatinine [Mass/Vol] 0.7 mg/dL 0.50 - 1.30 mg/dL [facility] eGFR - PINF [facility] Comment on above: Calculations of carl mated GFR are performed using the 2020 CKD-EPI Study Refit equation without the race variable for the IDMS-Traceable creatinine methods. https://jasn.asnjournals.org/content//ASN.27785 88522 Glucose [Mass/Vol] 105 mg/dL High 74 - 99 mg/dL [facility] Interpretation and review of laboratory results Abnormal [facility] Potassium [Moles/Vol] 3.7 mmol/L 3.5 - 5.3 mmol/L [facility] Sodium [Moles/Vol] 137 mmol/L 136 - 145 mmol/L [facility] Urea nitrogen [Mass/Vol] 9 mg/dL 6 - 23 mg/dL [facility] Anion gap [Moles/Vol] 12 mmol/L Normal 10-20 [facility] Comment on above: Performed By: #### 2 4321-2 #### KULDEEP SANCHEZ ([id number]) [facility] ([facility]) [address] [place] [address] 39353 Calcium [Mass/Vol] 9.3 mg/dL Normal 8.6-10.3 [facility] Comment on above: Performed By: #### 2 4321-2 #### KULDEEP SANCHEZ ([id number]) [facility] ([facility]) [address] [place] [address] Chloride [Moles/Vol] 104 mmol/L Normal 98-107 [facility] Comment on above: Performed By: #### 2 4321-2 #### KULDEEP SANCHEZ ([id number]) [facility] ([facility]) [address] [place] [address] 54259 CO2 [Moles/Vol] 25 mmol/L Normal 21-32 [facility] Comment on above: Performed By: #### 2 4321-2 #### KULDEEP SANCHEZ ([id number]) [facility] ([facility]) [address] [place] [address] 85909 Creatinine [Mass/Vol] 0.70 mg/dL Normal 0.50-1.30 [facility] Comment on above: Performed By: #### 2 4321-2 #### KULDEEP SANCHEZ ([id number]) [facility] ([facility]) [address] [place] [address] 60703 GFR/1.73 sq M.predicted MDRD (S/P/Bld) [Vol rate/Area] mL/min/{1.73_m2} Normal >60 [facility] Comment on above: Result Comment: Calc ulations of estimated GFR are performed using the 2020 CKD-EPI Study Refit equation without the race variable for the IDMS-Traceable creatinine methods. https://jasn.asnjournals.org/content//ASN.42076 49314 Performed By: #### 2 4321-2 #### KULDEEP SANCHEZ ([id number]) [facility] ([facility]) [address] [place] [address] Glucose [Mass/Vol] 105 mg/dL High 74-99 [facility] Comment on above: Performed By: #### 2 4321-2 #### KULDEEP SANCHEZ ([id number]) [facility] ([facility]) [address] [place] [address] 35174 Potassium [Moles/Vol] 3.7 mmol/L Normal 3.5-5.3 [facility] Comment on above: Performed By: #### 2 4321-2 #### KULDEEP SANCHEZ ([id number]) [facility] ([facility]) [address] [place], [place] [id number] Sodium [Moles/Vol] 137 mmol/L Normal 136-145 [facility] Comment on above: Performed By: #### 2 4321-2 #### KULDEEP SANCHEZ ([id number]) [facility] ([facility]) [address] [place], [place] [id number] Urea nitrogen [Mass/Vol] 9 mg/dL Normal 6-23 [facility] Comment on above: Performed By: #### 2 4321-2 #### KULDEEP SANCHEZ ([id number]) [facility] ([facility]) [address] [place] [address] CBC panel Auto (Bld)on 09-28 Erythrocyte distribution width (RBC) [Ratio] 12.1 % 11.5 - 14.5 % [facility] Hematocrit (Bld) [Volume fraction] 36.4 % Low 41.0 - 52.0 % [facility] Hemoglobin (Bld) [Mass/Vol] 12.3 g/dL Low 13.5 - 17.5 g/dL [facility] Interpretation and review of laboratory results Abnormal [facility] MCH (RBC) [Entitic mass] 33.1 pg 26.0 - 34.0 pg [facility] MCHC (RBC) [Mass/Vol] 33.8 g/dL 32.0 - 36.0 g/dL [facility] MCV (RBC) [Entitic vol] 98 fL 80 - 100 fL [facility] Nucleated RBC/100 WBC (Bld) [Ratio] 0 % [facility] Platelets (Bld) [#/Vol] 230 10*3/uL [facility] RBC (Bld) [#/Vol] 3.72 10*6/uL Low Unive [facility] WBC (Bld) [#/Vol] 6 10*3/uL [facility] Erythrocyte distribution width (RBC) [Ratio] 12.1 % Normal 11.5-14.5 [facility] Comment on above: Performed By: #### 5 8410-2 #### KULDEEP SANCHEZ ([id number]) [facility] ([facility]) [address] [place] [address] Hematocrit (Bld) [Volume fraction] 36.4 % Low 41.0-52.0 [facility] Comment on above: Performed By: #### 5 8410-2 #### KULDEEP SANCHEZ ([id number]) [facility] ([facility]) [address] [place] [address] 31864 Hemoglobin (Bld) [Mass/Vol] 12.3 g/dL Low 13.5-17.5 [facility] Comment on above: Performed By: #### 5 8410-2 #### KULDEEP SANCHEZ ([id number]) [facility] ([facility]) [address] [place] [address] 07931 MCH (RBC) [Entitic mass] 33.1 pg Normal 26.0-34.0 [facility] Comment on above: Performed By: #### 5 8410-2 #### KULDEEP SANCHEZ ([id number]) [facility] ([facility]) [address] [place] [address] 01386 MCHC (RBC) [Mass/Vol] 33.8 g/dL Normal 32.0-36.0 [facility] Comment on above: Performed By: #### 5 8410-2 #### KULDEEP SANCHEZ ([id number]) [facility] ([facility]) [address] [place] [address] 68783 MCV (RBC) [Entitic vol] 98 fL Normal 80-100 [facility] Comment on above: Performed By: #### 5 8410-2 #### KULDEEP SANCHEZ ([id number]) [facility] ([facility]) [address] [place] [address] 96560 Nucleated RBC/100 WBC (Bld) [Ratio] 0.0 /100 WBCs Normal 0.0-0.0 [facility] Comment on above: Performed By: #### 5 8410-2 #### KULDEEP SANCHEZ ([id number]) [facility] ([facility]) [address] [place] [address] 74711 Platelets (Bld) [#/Vol] 230 x10*3/uL Normal 150-450 [facility] Comment on above: Performed By: #### 5 8410-2 #### KULDEEP SANCHEZ ([id number]) [facility] ([facility]) [address] [place] [address] 77095 RBC (Bld) [#/Vol] 3.72 x10*6/uL Low 4.50-5.90 [facility] Comment on above: Performed By: #### 5 8410-2 #### KULDEEP SANCHEZ ([id number]) [facility] ([facility]) [address] [place] [address] 52770 WBC (Bld) [#/Vol] 6.0 x10*3/uL Normal 4.4-11.3 [facility] Comment on above: Performed By: #### 5 8410-2 #### KULDEEP SANCHEZ ([id number]) [facility] ([facility]) [address] [place] [address] 14884 Basic metabolic 2000 panelon 09-27-2024 Anion gap [Moles/Vol] 11 mmol/L 10 - 2 0 mmol/L [facility] Calcium [Mass/Vol] 9.2 mg/dL 8.6 - 10. 3 mg/dL [facility] Chloride [Moles/Vol] 103 mmol/L 98 - 10 7 mmol/L [facility] CO2 [Moles/Vol] 25 mmol/L 21 - 32 mmol/L [facility] Creatinine [Mass/Vol] 0.67 mg/dL 0.50 - 1.30 mg/dL [facility] eGFR - PINF [facility] Comment on above: Calculations of carl mated GFR are performed using the 2020 CKD-EPI Study Refit equation without the race variable for the IDMS-Traceable creatinine methods. https://jasn.asnjournals.org/content//ASN.30870 41486 Glucose [Mass/Vol] 109 mg/dL High 74 - 99 mg/dL [facility] Interpretation and review of laboratory results Abnormal [facility] Potassium [Moles/Vol] 3.6 mmol/L 3.5 - 5.3 mmol/L [facility] Sodium [Moles/Vol] 135 mmol/L Low 136 - 145 mmol/L [facility] Urea nitrogen [Mass/Vol] 10 mg/dL 6 - 23 mg/dL [facility] Anion gap [Moles/Vol] 11 mmol/L Normal 10-20 [facility] Comment on above: Performed By: #### 2 4321-2 #### KULDEEP SANCHEZ ([id number]) [facility] ([facility]) [address] [place] [address] 62157 Calcium [Mass/Vol] 9.2 mg/dL Normal 8.6-10.3 [facility] Comment on above: Performed By: #### 2 4321-2 #### KULDEEP SANCHEZ ([id number]) [facility] ([facility]) [address] [place] [address] Chloride [Moles/Vol] 103 mmol/L Normal 98-107 [facility] Comment on above: Performed By: #### 2 4321-2 #### KULDEEP SANCHEZ ([id number]) [facility] ([facility]) [facility] [place] [address] CO2 [Moles/Vol] 25 mmol/L Normal 21-32 [facility] Comment on above: Performed By: #### 2 4321-2 #### KULDEEP SANCHEZ ([id number]) [facility] ([facility]) [facility] [place] [address] Creatinine [Mass/Vol] 0.67 mg/dL Normal 0.50-1.30 [facility] Comment on above: Performed By: #### 2 4321-2 #### KULDEEP SANCHEZ ([id number]) [facility] ([facility]) [facility] [place] [address] GFR/1.73 sq M.predicted MDRD (S/P/Bld) [Vol rate/Area] mL/min/{1.73_m2} Normal >60 [facility] Comment on above: Result Comment: Calc ulations of estimated GFR are performed using the 2020 CKD-EPI Study Refit equation without the race variable for the IDMS-Traceable creatinine methods. https://jasn.asnjournals.org/content/early//ASN.26027 01270 Performed By: #### 2 4321-2 #### KULDEEP SANCHEZ ([id number]) [facility] ([facility]) [address] [place] [address] 12558 Glucose [Mass/Vol] 109 mg/dL High 74-99 [facility] Comment on above: Performed By: #### 2 4321-2 #### KULDEEP SANCHEZ ([id number]) [facility] ([facility]) [address] [place] [address] 37365 Potassium [Moles/Vol] 3.6 mmol/L Normal 3.5-5.3 [facility] Comment on above: Performed By: #### 2 4321-2 #### KULDEEP SANCHEZ ([id number]) [facility] ([facility]) [address] [place] [address] 67938 Sodium [Moles/Vol] 135 mmol/L Low 136-145 [facility] Comment on above: Performed By: #### 2 4321-2 #### KULDEEP SANCHEZ ([id number]) [facility] ([facility]) [address] [place] [address] 48952 Urea nitrogen [Mass/Vol] 10 mg/dL Normal 6-23 [facility] Comment on above: Performed By: #### 2 4321-2 #### KULDEEP SANCHEZ ([id number]) [facility] ([facility]) [address] [place] [address] CBC panel Auto (Bld)on 09-27 Erythrocyte distribution width (RBC) [Ratio] 12.3 % 11.5 - 14.5 % [facility] Hematocrit (Bld) [Volume fraction] 38.3 % Low 41.0 - 52.0 % [facility] Hemoglobin (Bld) [Mass/Vol] 12.7 g/dL Low 13.5 - 17.5 g/dL [facility] Interpretation and review of laboratory results Abnormal [facility] MCH (RBC) [Entitic mass] 32.2 pg 26.0 - 34.0 pg [facility] MCHC (RBC) [Mass/Vol] 33.2 g/dL 32.0 - 36.0 g/dL [facility] MCV (RBC) [Entitic vol] 97 fL 80 - 100 fL [facility] Nucleated RBC/100 WBC (Bld) [Ratio] 0 % [facility] Platelets (Bld) [#/Vol] 215 10*3/uL [facility] RBC (Bld) [#/Vol] 3.95 10*6/uL Low [facility] WBC (Bld) [#/Vol] 7.4 10*3/uL [facility] Erythrocyte distribution width (RBC) [Ratio] 12.3 % Normal 11.5-14.5 [facility] Comment on above: Performed By: #### 5 8410-2 #### KULDEEP SANCHEZ ([id number]) [facility] ([facility]) [address] [place] [address] Hematocrit (Bld) [Volume fraction] 38.3 % Low 41.0-52.0 [facility] Comment on above: Performed By: #### 5 8410-2 #### KULDEEP SANCHEZ ([id number]) [facility] ([facility]) [address] [place] [address] Hemoglobin (Bld) [Mass/Vol] 12.7 g/dL Low 13.5-17.5 [facility] Comment on above: Performed By: #### 5 8410-2 #### KULDEEP SANCHEZ ([id number]) [facility] ([facility]) [address] [place] [address] 34543 MCH (RBC) [Entitic mass] 32.2 pg Normal 26.0-34.0 [facility] Comment on above: Performed By: #### 5 8410-2 #### KULDEEP SANCHEZ ([id number]) [facility] ([facility]) [address] [place] [address] 55914 MCHC (RBC) [Mass/Vol] 33.2 g/dL Normal 32.0-36.0 [facility] Comment on above: Performed By: #### 5 8410-2 #### KULDEEP SANCHEZ ([id number]) [facility] ([facility]) [address] [place] [address] 84887 MCV (RBC) [Entitic vol] 97 fL Normal 80-100 [facility] [facility] Comment on above: Performed By: #### 5 8410-2 #### KULDEEP SANCHEZ ([id number]) [facility] ([facility]) [address] [place] [address] 18528 Nucleated RBC/100 WBC (Bld) [Ratio] 0.0 /100 WBCs Normal 0.0-0.0 [facility] Comment on above: Performed By: #### 5 8410-2 #### KULDEEP SANCHEZ ([id number]) [facility] ([facility]) [address] [place] [address] 93751 Platelets (Bld) [#/Vol] 215 x10*3/uL Normal 150-450 [facility] Comment on above: Performed By: #### 5 8410-2 #### KULDEEP SANCHEZ ([id number]) [facility] ([facility]) [address] [place] [address] 22203 RBC (Bld) [#/Vol] 3.95 x10*6/uL Low 4.50-5.90 [facility] Comment on above: Performed By: #### 5 8410-2 #### KULDEEP SANCHEZ ([id number]) [facility] ([facility]) [address] [place] [address] WBC (Bld) [#/Vol] 7.4 x10*3/uL Normal 4.4-11.3 [facility] Comment on above: Performed By: #### 5 8410-2 #### KULDEEP SANCHEZ ([id number]) [facility] ([facility]) [facility] [place] [id number] Basic metabolic 2000 panelon 09-26-2024 Anion gap [Moles/Vol] 15 mmol/L 10 - 2 0 mmol/L [facility] Calcium [Mass/Vol] 9.3 mg/dL 8.6 - 10. 3 mg/dL [facility] Chloride [Moles/Vol] 102 mmol/L 98 - 10 7 mmol/L [facility] CO2 [Moles/Vol] 21 mmol/L 21 - 32 mmol/L [facility] Creatinine [Mass/Vol] 0.65 mg/dL 0.50 - 1.30 mg/dL [facility] eGFR - PINF [facility] Comment on above: Calculations of carl mated GFR are performed using the 2020 CKD-EPI Study Refit equation without the race variable for the IDMS-Traceable creatinine methods. https://jasn.asnjournals.org/content///ASN.83891 22108 Glucose [Mass/Vol] 112 mg/dL High 74 - 99 mg/dL [facility] Interpretation and review of laboratory results Abnormal [facility] Potassium [Moles/Vol] 3.6 mmol/L 3.5 - 5.3 mmol/L [facility] Sodium [Moles/Vol] 134 mmol/L Low 136 - 145 mmol/L [facility] Urea nitrogen [Mass/Vol] 14 mg/dL 6 - 23 mg/dL [facility] Anion gap [Moles/Vol] 15 mmol/L Normal 10-20 [facility] Comment on above: Performed By: #### 2 4321-2 #### KULDEEP SANCHEZ ([id number]) [facility] ([facility]) [address] [place] [address] 06629 Calcium [Mass/Vol] 9.3 mg/dL Normal 8.6-10.3 [facility] Comment on above: Performed By: #### 2 4321-2 #### KULDEEP SANCHEZ ([id number]) [facility] ([facility]) [address] [place] [address] 33863 Chloride [Moles/Vol] 102 mmol/L Normal 98-107 [facility] Comment on above: Performed By: #### 2 4321-2 #### KULDEEP SANCHEZ ([id number]) [facility] ([facility]) [address] [place] [address] 45358 CO2 [Moles/Vol] 21 mmol/L Normal 21-32 [facility] Comment on above: Performed By: #### 2 4321-2 #### KULDEEP SANCHEZ ([id number]) [facility] ([facility]) [address] [place] [address] 84146 Creatinine [Mass/Vol] 0.65 mg/dL Normal 0.50-1.30 [facility] Comment on above: Performed By: #### 2 4321-2 #### KULDEEP SANCHEZ ([id number]) [facility] ([facility]) [address] [place] [address] 73841 GFR/1.73 sq M.predicted MDRD (S/P/Bld) [Vol rate/Area] mL/min/{1.73_m2} Normal >60 [facility] Comment on above: Result Comment: Calc ulations of estimated GFR are performed using the 2020 CKD-EPI Study Refit equation without the race variable for the IDMS-Traceable creatinine methods. https://jasn.asnjournals.org/content/early/ASN.15471 35790 Performed By: #### 2 4321-2 #### KULDEEP SANCHEZ ([id number]) [facility] ([facility]) [address] [place] [address] 44421 Glucose [Mass/Vol] 112 mg/dL High 74-99 [facility] Comment on above: Performed By: #### 2 4321-2 #### KULDEEP SANCHEZ ([id number]) [facility] ([facility]) [facility] [place] 2035305 Potassium [Moles/Vol] 3.6 mmol/L Normal 3.5-5.3 [facility] Comment on above: Performed By: #### 2 4321-2 #### KULDEEP SANCHEZ ([id number]) [facility] ([facility]) [address] [place], [place] [address] Sodium [Moles/Vol] 134 mmol/L Low 136-145 [facility] Comment on above: Performed By: #### 2 4321-2 #### KULDEEP SANCHEZ ([id number]) [facility] ([facility]) [address] [place] [address] Urea nitrogen [Mass/Vol] 14 mg/dL Normal 6-23 [facility] Comment on above: Performed By: #### 2 4321-2 #### KULDEEP SANCHEZ ([id number]) [facility] ([facility]) [address] [place], [place] [address] CBC W Auto Differential pane l (Bld)on 09-26-2024 Basophils (Bld) [#/Vol] 0.03 10*3/uL [facility] Basophils/100 WBC (Bld) 0.2 % 0.0 - 2.0 % [facility] Eosinophils (Bld) [#/Vol] 0.04 10*3/uL [facility] Eosinophils/100 WBC (Bld) 0.3 % 0.0 - 6.0 % [facility] Erythrocyte distribution width (RBC) [Ratio] 12.3 % 11.5 - 14.5 % [facility] Hematocrit (Bld) [Volume fraction] 39 % Low 41.0 - 52.0 % [facility] Hemoglobin (Bld) [Mass/Vol] 13.2 g/dL Low 13.5 - 17.5 g/dL [facility] Immature granulocytes (Bld) [#/Vol] 0.04 10*3/uL [facility] Immature granulocytes/100 WBC (Bld) 0.3 % 0.0 - 0.9 % [facility] Comment on above: Immature Granulocyte Count (IG) includes promyelocytes, myelocytes and metamyelocytes but does not include bands. Percent differential counts (%) should be interpreted in the context of the absolute cell counts (cells/UL). Interpretation and review of laboratory results Abnormal [facility] Lymphocytes (Bld) [#/Vol] 1.24 10*3/uL [facility] Lymphocytes/100 WBC (Bld) 10.1 % 13.0 - 44.0 % [facility] MCH (RBC) [Entitic mass] 32.1 pg 26.0 - 34.0 pg [facility] MCHC (RBC) [Mass/Vol] 33.8 g/dL 32.0 - 36.0 g/dL [facility] MCV (RBC) [Entitic vol] 95 fL 80 - 100 fL [facility] Monocytes (Bld) [#/Vol] 1.26 10*3/uL High [facility] Monocytes/100 WBC (Bld) 10.3 % 2.0 - 10.0 % [facility] Neutrophils (Bld) [#/Vol] 9.64 10*3/uL High [facility] Comment on above: Percent differential counts (%) should be interpreted in the context of the absolute cell counts (cells/uL). Neutrophils/100 WBC (Bld) 78.8 % 40.0 - 80.0 % [facility] Nucleated RBC/100 WBC (Bld) [Ratio] 0 % [facility] Platelets (Bld) [#/Vol] 220 10*3/uL [facility] RBC (Bld) [#/Vol] 4.11 10*6/uL Low [facility] WBC (Bld) [#/Vol] 12.3 10*3/uL High [facility] Basophils (Bld) [#/Vol] 0.03 x10*3/uL Normal 0.00-0.10 [facility] Comment on above: Performed By: #### 5 7021-8 #### LIGHT LAURA ([id number]) [facility] ([facility]) [address] [place] [address] Basophils/100 WBC (Bld) 0.2 % Normal 0.0-2.0 [facility] Comment on above: Performed By: #### 5 7021-8 #### KULDEEP SANCHEZ ([id number]) [facility] ([facility]) [address] [place] [address] 21986 Eosinophils (Bld) [#/Vol] 0.04 x10*3/uL Normal 0.00-0.70 [facility] Comment on above: Performed By: #### 5 7021-8 #### KULDEEP SANCHEZ ([id number]) [facility] ([facility]) [address] [place] [address] 35899 Eosinophils/100 WBC (Bld) 0.3 % Normal 0.0-6.0 [facility] Comment on above: Performed By: #### 5 7021-8 #### KULDEEP SANCHEZ ([id number]) [facility] ([facility]) [address] [place] [address] 64795 Erythrocyte distribution width (RBC) [Ratio] 12.3 % Normal 11.5-14.5 [facility] Comment on above: Performed By: #### 5 7021-8 #### KULDEEP SANCHEZ ([id number]) [facility] ([facility]) [address] [place] [address] 96764 Hematocrit (Bld) [Volume fraction] 39.0 % Low 41.0-52.0 [facility] Comment on above: Performed By: #### 5 7021-8 #### KULDEEP SANCHEZ ([id number]) [facility] ([facility]) [address] [place] [address] 20430 Hemoglobin (Bld) [Mass/Vol] 13.2 g/dL Low 13.5-17.5 [facility] Comment on above: Performed By: #### 5 7021-8 #### KULDEEP SANCHEZ ([id number]) [facility] ([facility]) [address] [place] [address] 46628 Immature granulocytes (Bld) [#/Vol] 0.04 x10*3/uL Normal 0.00-0.70 [facility] Comment on above: Performed By: #### 5 7021-8 #### KULDEEP SANCHEZ ([id number]) [facility] ([facility]) [address] [place] [address] 66154 Immature granulocytes/100 WBC (Bld) 0.3 % Normal 0.0-0.9 [facility] Comment on above: Result Comment: Theresa ture Granulocyte Count (IG) includes promyelocytes, myelocytes and metamyelocytes but does not include bands. Percent differential counts (%) should be interpreted in the context of the absolute cell counts (cells/UL). Performed By: #### 5 7021-8 #### KULDEEP SANCHEZ ([id number]) [facility] ([facility]) [address] [place] [address] Lymphocytes (Bld) [#/Vol] 1.24 x10*3/uL Normal 1.20-4.80 [facility] Comment on above: Performed By: #### 5 7021-8 #### KULDEEP SANCHEZ ([id number]) [facility] ([facility]) [address] [place] [address] 71882 Lymphocytes/100 WBC (Bld) 10.1 % Normal 13.0-44.0 [facility] Comment on above: Performed By: #### 5 7021-8 #### KULDEEP SANCHEZ ([id number]) [facility] ([facility]) [address] [place] [address] 07343 MCH (RBC) [Entitic mass] 32.1 pg Normal 26.0-34.0 [facility] Comment on above: Performed By: #### 5 7021-8 #### KULDEEP SANCHEZ ([id number]) [facility] ([facility]) [address] [place] [address] 70529 MCHC (RBC) [Mass/Vol] 33.8 g/dL Normal 32.0-36.0 [facility] Comment on above: Performed By: #### 5 7021-8 #### KULDEEP SANCHEZ ([id number]) [facility] ([facility]) [address] [place] [address] 85339 MCV (RBC) [Entitic vol] 95 fL Normal 80-100 [facility] Comment on above: Performed By: #### 5 7021-8 #### KULDEEP SANCHEZ ([id number]) [facility] ([facility]) [address] [place] [address] 64700 Monocytes (Bld) [#/Vol] 1.26 x10*3/uL High 0.10-1.00 [facility] Comment on above: Performed By: #### 5 7021-8 #### KULDEEP SANCHEZ ([id number]) [facility] ([facility]) [address] [place] [address] 04020 Monocytes/100 WBC (Bld) 10.3 % Normal 2.0-10.0 [facility] Comment on above: Performed By: #### 5 7021-8 #### KULDEEP SANCHEZ ([id number]) [facility] ([facility]) [address] [place] [address] 34734 Neutrophils (Bld) [#/Vol] 9.64 x10*3/uL High 1.20-7.70 [facility] Comment on above: Result Comment: Perc ent differential counts (%) should be interpreted in the context of the absolute cell counts (cells/uL). Performed By: #### 5 7021-8 #### KULDEEP SANCHEZ ([id number]) [facility] ([facility]) [address] [place] [address] 53375 Neutrophils/100 WBC (Bld) 78.8 % Normal 40.0-80.0 [facility] Comment on above: Performed By: #### 5 7021-8 #### KULDEEP SANCHEZ ([id number]) [facility] ([facility]) [address] [place] [address] 24136 Nucleated RBC/100 WBC (Bld) [Ratio] 0.0 /100 WBCs Normal 0.0-0.0 [facility] Comment on above: Performed By: #### 5 7021-8 #### KULDEEP SANCHEZ ([id number]) [facility] ([facility]) [address] [place] [address] 76232 Platelets (Bld) [#/Vol] 220 x10*3/uL Normal 150-450 [facility] Comment on above: Performed By: #### 5 7021-8 #### KULDEEP SANCHEZ ([id number]) [facility] ([facility]) [address] [place] [address] 90525 RBC (Bld) [#/Vol] 4.11 x10*6/uL Low 4.50-5.90 [facility] Comment on above: Performed By: #### 5 7021-8 #### KULDEEP SANCHEZ ([id number]) [facility] ([facility]) [address] [place] [address] WBC (Bld) [#/Vol] 12.3 x10*3/uL High 4.4-11.3 [facility] Comment on above: Performed By: #### 5 7021-8 #### KULDEEP SANCHEZ ([id number]) [facility] ([facility]) [address] [place] [address] 12 Lead EKGon 05-20-2023 12 Lead EKG [facility] [address] [place] [address]10 12 Lead EKG 05/20/23 1146 MR#: [id number] Acct: [id number] Name: CARLOS ALBERTO VALENCIA Rep #: [id number] : 1965 57 From: Sterling Ch MD Attending Dr: Dr. Jose Hinkle, Status: REG CLI Ordering Dr: Jose Hinkle DO Date: 05/20/23 Location: [facility] Sex: M C Admitted: Test Reason : CP ENLARGED HEART Blood Pressure : / mmHG Vent. Rate : 065 BPM Atrial Rate : 065 BPM P-R Int : 170 ms QRS Dur : 098 ms QT Int : 400 ms P-R-T Axes : 073 051 060 degrees QTc Int : 416 ms Normal sinus rhythm Normal ECG Confirmed by STERLING CH MD ([id number]), school photograph editor YOLIS CURIEL ([id number]) on 05/21/2023 7:04:45 AM Referred By: Jose Hinkle Confirmed By:STERLING CH MD 05/21/23 0704 Date Sterling Ch MD CC: Dr. Jose Hinkle, DO; [facility] Signed Normal [facility] Basophil percentageOrdered B y: Jose Hinkle on 05-20-2023 Bilirubin [Mass/Vol] 0.80 mg/dL 0.20-1.00 [facility] Comment on above: For patients on eltr ombopag therapy, use of Dimension Venus TBIL is not recommended. Protein [Mass/Vol] 7.9 g/dL 6.4-8.2 [facility] Direct bilirubinOrdered By: Jose Hinkle on 05-20-2023 Bilirubin.direct [Mass/Vol] 0.35 mg/dL 0.00-0.[address] [facility] Echo Completeon 05-20-[address] [facility] [address] [place] [address] Echo Complete 05/20/23 1103 MR#: [id number] Acct: [id number] Name: CARLOS ALBERTO VALENCIA Rep #: [id number] : 1965 57 From: Sterling Ch MD Attending Dr: Dr. Jose Hinkle DO Status: REG CLI Ordering Dr: Jose Hinkle DO Date: 05/20/23 Location: [facility] Sex: M C Admitted: Reason For Study: Enlarged Heart, CP Procedure This was a 2D Doppler, Color Flow transthoracic echocardiogram. Exam performed in department. Left Ventricle Normal LV size. Left ventricular systolic function is normal. The estimated ejection fraction is 65 %. Stage 1 diastolic dysfunction. No regional wall motion abnormalities noted. Right Ventricle Normal RV size. Normal systolic function. Atria Normal left atrium. Normal right atrium. Bubble contrast study negative for right to left interatrial shunt. Mitral Valve Normal mitral valve. Mild (1+) eccentric mitral valve insufficiency. Tricuspid Valve Normal tricuspid valve. Mild tricuspid valve insufficiency. Pulmonary artery systolic pressure is 26 mmHg. Aortic Valve Normal aortic valve. Pulmonic Valve Normal pulmonic valve. Great Vessels Normal aortic root. The pulmonary artery is normal size. Normal inferior vena cava. Pericardium/Pleural No pericardial effusion. MMode/2D Measurements Calculations LVIDd: 4.9 cm IVSd: 0.92 cm Ao root diam: 3.3 cm LVIDs: 3.3 cm LVPWd: 0.92 cm LA dimension: 3.8 cm RVDd: 4.1 cm FS: 32.9 % LAV(MOD-bp): 57.8 ml LVAd ap4: 32.9 cm2 SV(MOD-sp4): 65.3 ml LAV(MOD-bp) Indexed: 28.1 ml/m2 LVLd ap4: 8.5 cm LAV(MOD-sp2): 65.7 ml EDV(MOD-sp4): 103.2 ml LAV(MOD-sp4): 47.7 ml EDV(sp4-el): 108.1 ml LVAs ap4: 18.4 cm2 LVLs ap4: 7.4 cm ESV(MOD-sp4): 37.9 ml ESV(sp4-el): 38.9 ml EF(MOD-sp4): 63.3 % EF(sp4-el): 64.0 % SV(sp4-el): 69.2 ml LA A4 area: 17.7 cm2 RA A4 area: 16.2 cm2 TAPSE: 2.1 cm Time Measurements MV dec time: 0.17 sec Doppler Measurements Calculations MV E max vicente: 70.1 cm/sec Lat Peak E' Vicente: 14.9 cm/sec Med Peak E' Vicente: 10.7 cm/sec MV A max vicente: 73.1 cm/sec E/E' lat: 4.7 E/E' med: 6.6 MV E/A: 0.96 MV V2 max: 67.0 cm/sec MV P1/2t max vicente: 67.4 cm/sec Ao V2 max: 137.4 cm/sec MV max P.8 mmHg MV P1/2t: 52.0 msec Ao max P.6 mmHg MV V2 mean: 35.1 cm/sec MV dec slope: 379.5 cm/sec2 Ao V2 mean: 91.9 cm/sec MV mean P.58 mmHg Ao mean P.9 mmHg MV V2 VTI: 19.5 cm MVA(P1/2t): 4.2 cm2 Ao V2 VTI: 33.1 cm AV (velocity ratio): 0.81 LV V1 max: 116.5 cm/sec MR max vicente: 524.4 cm/sec PA V2 max: 101.5 cm/sec LV V1 max P.4 mmHg MR max P.0 mmHg LV V1 mean P.0 mmHg LV V1 mean: 80.9 cm/sec LV V1 VTI: 26.9 cm PI dec slope: 115.2 cm/sec2 TR max vicente: 243.3 cm/sec TR max P.7 mmHg ECHO/Echo Complete Interpretation Summary Normal LV size. Left ventricular systolic function is normal. The estimated ejection fraction is 65 %. Stage 1 diastolic dysfunction. Pulmonary artery systolic pressure is 26 mmHg. Bubble contrast study negative for right to left interatrial shunt. Ordering Physician: Jose Hinkle Referring Physician: Jose Hinkle Performed By: Gopi Rogers, RCS 05/20/231741 Date Sterling Ch MD CC: Dr. Jose Hinkle, DO; [facility] Date Dictated: 05/20/23 1103 Date Transcribed: 05/20/231741 Pizza Maker: Signed Normal [facility] - Chemistry and C hemistry - challengeOrdered By: Jose Hinkle on 05-20-2023 ALP [Catalytic activity/Vol] 78 U/L 45-[address] [facility] ALT [Catalytic activity/Vol] 33 U/L 16-[address] [facility] Globulin (S) [Mass/Vol] 3.8 g/dL 2.2-4.[address] [facility] Liver Profileon 05-20-2023 Albumin [Mass/Vol] 4.1 g/dL Normal 3.2-5.0 [facility] Comment on above: Performed By: #### L 500.3400 #### [facility] [address] [place], [address] ALK P 78 U/L Normal 45-[address] [facility] Comment on above: Performed By: #### L 500.3400 #### [facility] [address] [place], [address] ALT [Catalytic activity/Vol] 33 U/L Normal 16-[address] [facility] Comment on above: Performed By: #### L 500.3400 #### [facility] [address] [place], [address] AST [Catalytic activity/Vol] 28 U/L Normal 15-[address] [facility] Comment on above: Performed By: #### L 500.3400 #### [facility] [address] [place], [address] Bilirubin [Mass/Vol] 0.80 mg/dL Normal 0.20-1.00 [facility] Comment on above: Result Comment: For patients on eltrombopag therapy, use of Dimension Venus TBIL is not recommended. Performed By: #### L 500.3400 #### [facility] [address] [place], [address] Bilirubin.direct [Mass/Vol] 0.35 mg/dL High 0.00-0.[address] [facility] Comment on above: Performed By: #### L 500.3400 #### [facility] [address] [place], [address] Globulin (S) [Mass/Vol] 3.8 g/dL Normal 2.2-4.[address] [facility] Comment on above: Performed By: #### L 500.3400 #### [facility] [address] [place], [place], [address] T PROT 7.9 g/dL Normal 6.4-8.[address] [facility] Comment on above: Performed By: #### L 500.3400 #### [facility] [address] [place], [place], [address] Thin prep Papanicolaou smear with manual screeningOrdered By: Jose Hinkle on 05-20-2023 Thin prep Papanicolaou smear with manual screening 4.1 g/dL 3.2-5.[address] [facility] Thin prep Papanicolaou smear with manual screening 28 U/L [address] [facility] Sinus/Facial Boneon 03-23-20 23 Sinus/Facial Bone [facility] Imaging Services [address] [place] [address] Sinus/Facial Bone MR#: [id number] Acct: [id number] Name: CARLOS ALBERTO VALENCIA Rep #: [id number] : 1965 M 57 From: Desire Almonte MD PCP: [facility] Status: REG CLI Study: Sinus/Facial Bone Date of Exam: 03/23/23 Exam# [id number] Ordering Dr: Waqar Manuel MD [id number] INDICATION: CHRONIC SINUSITIS EXAMINATION: CT FACIAL BONES - CT Maxillofacial W/O Contrast Injection TECHNIQUE: Helically acquired images were obtained of the facial bones. A radiation dose optimization technique was used for this scan. IV Contrast dosage and agent: None. RADIATION DOSAGE (If Supplied By Facility): CTDIvol = ( 33.06 ) mGy, DLP = ( 875.17 ) mGycm COMPARISON: No relevant prior comparison study available __ FINDINGS: SOFT TISSUES: No focal subcutaneous swelling. No discrete fluid collections. VISUALIZED PARANASAL SINUSES: There is mild opacification of the frontal, ethmoid and maxillary sinuses. There is a round low-attenuation focus within the left maxillary sinus which may reflect a mucous retention cyst or polyp. VISUALIZED MASTOID AIR CELLS: Clear. FACIAL BONES, MANDIBLE AND TMJs: No displaced facial bone fracture. No lytic or blastic abnormality. VISUALIZED DENTITION: No periodontal osseous erosion. ORBITAL CONTENTS: Both globes, extraocular muscles and retrobulbar fat appear unremarkable. CT/Sinus/Facial Bone IMPRESSION: Mild opacification of the frontal, ethmoid and maxillary sinuses consistent with a history of sinusitis. Electronically Signed: Desire Almonte MD at 14:24 EST , CC: Dr. Waqar Manuel MD; [facility] Pizza Maker: Signed Normal [facility] CT ABDOMEN PELVIS WITH IV CO NTRAST ONLYon 02-13-2023 CT ABDOMEN PELVIS WITH IV CONTRAST ONLY EXAMINATION: CT ABDOMEN PELVIS WITH IV CONTRAST ONLY HISTORY: ORDERING SYSTEM PROVIDED HISTORY: Left lower quadrant abdominal pain and history of diverticulitis, TECHNOLOGIST PROVIDED HISTORY: Illness/Other Reason for exam: Left lower quadrant abdominal pain and history of diverticulitis Encounter Type: Initial Additional signs and symptoms: none ORDERING SYSTEM PROVIDED DIAGNOSIS CODES: COMPARISON: 01/18/2021. TECHNIQUE: CT examination of the abdomen and pelvis following the administration of intravenous contrast. Coronal and sagittal reformations were performed. Dose reduction techniques were achieved by using automated exposure control and/or adjustment of mA and/or kV according to patient size and/or use of iterative reconstruction technique. CONTRAST: IOPAMIDOL 370 MG IODINE/ML (76 %) INTRAVENOUS SOLUTION - 75 mL, FINDINGS: LOWER CHEST: Normal. ABDOMEN: Liver: Hepatic steatosis. More focal low-attenuation of the falciform ligament, suggestive of more focal fatty infiltration. Bile ducts: Normal caliber. Gallbladder: No calcified gallstones. Normal caliber wall. Pancreas: Normal. Spleen: Normal. Adrenals: Normal. Kidneys: Symmetric enhancement without hydronephrosis. Small subcentimeter right upper pole renal cyst. PELVIS: Reproductive organs: Prostatomegaly. Ureters: Normal. Bladder: Partially distended bladder with nonspecific mild wall thickening. OTHER ABDOMEN AND PELVIS: Bowel: Nonvisualization of the appendix. Reported prior appendectomy. Diffuse thickening of the cecum and ascending colon with liquid stool and mild amount of pericolonic ascites. Terminal ileum is decompressed and possibly thickened. Remaining colon is predominantly decompressed. No evidence of bowel obstruction. Sigmoid colonic diverticulosis. Peritoneum: No free intraperitoneal air. Small amount of free fluid in the pelvis. Vessels: Normal. Lymph nodes: No enlarged lymph nodes. Abdominal wall: Small fat-containing umbilical hernia. Osseous structures: No destructive lesions. Severe degenerative changes at L5-S1 with mild retrolisthesis and [id number] bilateral foraminal stenosis. IMPRESSION: Overall findings suggestive of infectious/inflammato ry colitis involving the right colon. Additionally, possible terminal ileitis. No bowel obstruction, pneumatosis, or pneumoperitoneum. Sigmoid colonic diverticulosis without diverticulitis. Hepatic steatosis. Prior appendectomy. /[facility] [place] Workstation ID: [id number] Dictated by: BARBARA CEBALLOS on ThuFeb 13, 2023 1:32:10 PM EDT Transcribed by: ADEBAYO INGRAM on ThuFeb 13, 2023 1:37:54 PM EDT Finalized by: BARBARA CEBALLOS on ThuFeb 13, 2023 10:05:30 PM EDT [facility] Comment on above: Order Comment: Injur y/Trauma or Illness?:Illness/Other How long have you had these symptoms (acute/chronic)?:Acute Reason for exam?:Left lower quadrant abdominal pain and history of diverticulitis Type of Exam?:Initial Additional signs and symptoms?:none XR CHEST PA/APon 02-13-2023 XR CHEST PA/AP EXAMINATION: XR CHEST PA/AP 02/13/2023 12:18 pm HISTORY: ORDERING SYSTEM PROVIDED HISTORY: dizziness, TECHNOLOGIST PROVIDED HISTORY: Illness/Other Reason for exam: dizziness Cancer History: u Surgery, RadiationHistory: u Encounter Type: Initial Additional signs and symptoms: none ORDERING SYSTEM PROVIDED DIAGNOSIS CODES: COMPARISON: Chest radiograph 12/08/2022. FINDINGS: Normal cardiomediastinal contours. No acute infiltrate, pleural effusion or pneumothorax. No acute osseous abnormality. IMPRESSION: No acute cardiopulmonary process. Workstation ID: [id number] Dictated by: NAOMI WORLEY on ThuFeb 13, 2023 12:53:26 PM EDT Transcribed by: NAOMI WORLEY on ThuFeb 13, 2023 12:53:26 PM EDT Finalized by: NAOMI WORLEY on ThuFeb 13, 2023 12:53:26 PM EDT [facility] Comment on above: Order Comment: Injur y/Trauma or Illness?:Illness/Other How long have you had these symptoms (acute/chronic)?:Acute Reason for exam?:dizziness History of cancer?:u Surgeries, chemotherapy, or radiation?:u Type of Exam?:Initial Additional signs and symptoms?:none No Panel Informationon 12-08 1. No acute cardiopulmonary disease. Workstation ID: [id number] [employer] EXAMINATION: XR CHEST AP/PA AND LAT 12/08/2022 1:43 pm HISTORY: ORDERING SYSTEM PROVIDED HISTORY: cough x two weeks with wheezing/SOB, TECHNOLOGIST PROVIDED HISTORY: Illness/Other Reason for exam: cough Cancer History: u Surgery, RadiationHistory: u Encounter Type: Initial Additional signs and symptoms: cough x 2 weeks, wheezing, SOB, chest pain ORDERING SYSTEM PROVIDED DIAGNOSIS CODES: R07.89 Atypical chest pain R05.1 Acute cough R06.2 Wheezing FINDINGS: The lungs are clear. There is no focal lung consolidation, pleural effusion or pneumothorax. Pulmonary vasculature is within normal limits. The cardiomediastinal silhouette is normal. GE RIS Makenna Alexander MD - 12/08/2022 EXAMINATION: XR CHEST AP/PA AND LAT 12/08/2022 1:43 pm HISTORY: ORDERING SYSTEM PROVIDED HISTORY: cough x two weeks with wheezing/SOB, TECHNOLOGIST PROVIDED HISTORY: Illness/Other Reason for exam: cough Cancer History: u Surgery, RadiationHistory: u Encounter Type: Initial Additional signs and symptoms: cough x 2 weeks, wheezing, SOB, chest pain ORDERING SYSTEM PROVIDED DIAGNOSIS CODES: R07.89 Atypical chest pain R05.1 Acute cough R06.2 Wheezing FINDINGS: The lungs are clear. There is no focal lung consolidation, pleural effusion or pneumothorax. Pulmonary vasculature is within normal limits. The cardiomediastinal silhouette is normal. IMPRESSION: 1. No acute cardiopulmonary disease. Workstation ID: [id number] [facility] Radiology Study observation (narrative) [facility] No Panel InformationOrdered By: Makenna Alexander on 12-08-2022 [facility] Work Phone: XR CHEST AP/PA AND LATon XR CHEST AP/PA AND LAT EXAMINATION: XR CHEST AP/PA AND LAT 12/08/2022 1:43 pm HISTORY: ORDERING SYSTEM PROVIDED HISTORY: cough x two weeks with wheezing/SOB, TECHNOLOGIST PROVIDED HISTORY: Illness/Other Reason for exam: cough Cancer History: u Surgery, RadiationHistory: u Encounter Type: Initial Additional signs and symptoms: cough x 2 weeks, wheezing, SOB, chest pain ORDERING SYSTEM PROVIDED DIAGNOSIS CODES: R07.89 Atypical chest pain R05.1 Acute cough R06.2 Wheezing FINDINGS: The lungs are clear. There is no focal lung consolidation, pleural effusion or pneumothorax. Pulmonary vasculature is within normal limits. The cardiomediastinal silhouette is normal. IMPRESSION: 1. No acute cardiopulmonary disease. Workstation ID: [id number] Dictated by: MAKENNA ALEXANDER on ThuDec 08, 2022 2:00:22 PM EDT Transcribed by: MAKENNA ALEXANDER on ThuDec 08, 2022 2:00:22 PM EDT Finalized by: MAKENNA ALEXANDER on ThuDec 08, 2022 2:00:22 PM EDT Normal [facility] Comment on above: Order Comment: Injur y/Trauma or Illness?:Illness/Other How long have you had these symptoms (acute/chronic)?:Acute Reason for exam?:cough History of cancer?:u Surgeries, chemotherapy, or radiation?:u Type of Exam?:Initial Additional signs and symptoms?:cough x 2 weeks, wheezing, SOB, chest pain XR CHEST 2 VIEW PA+LATon XR CHEST 2 VIEW PA+LAT EXAMINATION: XR C HEST 2 VIEW PA+LAT 04/02/2022 11:35 AM CLINICAL HISTORY: Reason for Exam: Dyspnea ASSOCIATED DIAGNOSIS: Dyspnea, unspecified type ORDERING PROVIDER: GIGI MARRUFO TECHNOLOGISTS NOTE: COMPARISON: None FINDINGS: Cardiomediastinal silhouette: Normal. Lungs/Pleura: No focal pulmonary consolidation, effusion or pneumothorax. Musculoskeletal: Unremarkable. IMPRESSION: No consolidative pneumonia or overt pulmonary edema. MACRO: None Normal [facility] BN MR WRIST W/O CONTRASTon 0 07-04-2021 BN MR WRIST W/O CONTRAST Patient Name: CARLOS ALBERTO VALENCIA STUDY: MRI of the Right wrist with out IV contrast; 07/04/2021 2:21 pm INDICATION: RIGHT WRIST PAIN ATYPICAL CARPAL TUNNEL SYNDROME COMPARISON: None ACCESSION NUMBER(S): [id number] ORDERING CLINICIAN: SIMBA WAGNER TECHNIQUE: Multiplanar multisequence MRI of the Right wrist was performed without intravenous contrast. FINDINGS: Evaluation is slightly limited due to motion artifact. Bones: Mild degenerative changes are noted in the radiocarpal joints with mild subchondral bone marrow edema and articular cartilage thinning, more pronounced at radiolunate articulation. Intrinsic carpal ligaments: There is mild thickening with increased intrasubstance signal in the dorsal and volar bands of the scapholunate ligament, likely suggestive of mild sprain, however no evidence of ligament discontinuity to suggest a tear. The lunotriquetral, radioscaphocapitate, dorsal intercarpal, and volar radial triquetral ligaments are intact. Triangular Fibrocartilage Complex: There is mild indistinct morphology of the ulnolunate and ulnar triquetral components of the triangular fibrocartilage complex which could be related to motion artifact versus could represent mild chronic sprain. The articular disc also demonstrates mild increased intrasubstance signal without discontinuity and could represent mild degenerative change. Tendons: The flexor tendons are within normal limits. There is linear increased signal within the extensor carpi ulnaris tendon at the level of ulnar styloid groove, suggestive of mild tendinosis with possible segmental split tearing at this level. No evidence of tenosynovitis. Carpal Tunnel: There is a well-circumscribed lobulated T2 hyperintense structure arising from the volar aspect of distal radial metaphysis scratch with a taillike extension to the radioscaphoid joint articulation measuring approximately 7.4 x 6.2 x 3 mm in transverse, cc and AP dimensions respectively and is compatible with a ganglion cyst. This cyst slightly extends into the carpal tunnel, however the flexor tendons within the carpal tunnel appears grossly unremarkable. There is incidental note of bifid morphology of the median nerve, however median nerve itself appears normal in size. Guyon's Canal: Unremarkable. IMPRESSION: 1. A 7.4 x 6.2 x 3 mm ganglion cyst along the volar aspect of radioscaphoid joint and slightly extending into the carpal tunnel. This corresponds to the region of focal pain (underneath the skin marker) and could cause mild mass effect on the contents of carpal tunnel. 2. Mild arthrosis of radiolunate joint. 3. Mild extensor carpi ulnaris tendinosis with suggestion of small segmental split tearing at the level of ulnar styloid groove. 4. Suggestion of mild sprain/degenerative change of the scapholunate and triangular fibrocartilage complex as described above. Electronically signed by: MALIA GRAYSON MD [facility] Vital Signs Date Time Vital Sign Value Performing Clinician Facility 09-28-2024 07:00-0400 Body temperature 97.2 [degF] Zia Parker MD Work Phone: [facility] 09-28-2024 07:00-0400 Diastolic blood pressure 73 mm[Hg] Zia Parker MD Work Phone: [facility] 09-28-2024 07:00-0400 Heart rate 75 /min Zia Parker MD Work Phone: [facility] 09-28-2024 07:00-0400 Respiratory rate 18 /min Zia Parker MD Work Phone: [facility] 09-28-2024 07:00-0400 SaO2% (BldA) [Mass fraction] 95 % Zia Parker MD Work Phone: [facility] 09-28-2024 07:00-0400 Systolic blood pressure 131 mm[Hg] Zia Parker MD Work Phone: [facility] 09-26-2024 02:43-0400 Body height 182.9 cm Zia Parker MD Work Phone: [facility] 09-26-2024 02:43-0400 Body mass index (BMI) [Ratio] 25.41 kg/m2 Zia Parker MD Work Phone: [facility] 09-26-2024 02:43-0400 Body weight 85 kg Zia Parker MD Work Phone: [facility] 12-08-2022 14:15-0400 Diastolic blood pressure 83 mm[Hg] Petar Agustin CNP Work Phone: [facility] Comment on above: recheck [facility] 08-07-2023 14:15-0400 Systolic blood pressure 132 mm[Hg] Petar Agustin CNP Work Phone: [facility] Comment on above: recheck [facility] 12-08-2022 13:31-0400 Body height 182.9 cm Petar Agustin CNP Work Phone: [facility] 12-08-2022 13:31-0400 Body mass index (BMI) [Ratio] 25.23 kg/m2 Petar Agustin CNP Work Phone: [facility] 12-08-2022 13:31-0400 Body temperature 98.2 [degF] Petar Agustin CNP Work Phone: [facility] 12-08-2022 13:31-0400 Body weight 84.37 kg Petar Agustin CNP Work Phone: [facility] 12-08-2022 13:31-0400 Heart rate 68 /min Petargabbie Agustin CNP Work Phone: [facility] 12-08-2022 13:31-0400 Respiratory rate 16 /min Petar Agustin CNP Work Phone: [facility] 12-08-2022 13:31-0400 SaO2% (BldA) [Mass fraction] 97 % Petar Agustin CNP Work Phone: [facility] Encounters Encounter Date Encounter Type Care Provider Facility Start: 09-26-2024 End: 09-28-2024 Evaluation and management of inpatient Zia Parker MD Work Phone: [facility] 3 Comment on above: Cellulitis of right upper extremity (Primary Dx); Dog bite, initial encounter Start: 05-20-2023 Non-patient / Non-visit [facility] Start: 05-20-2023 End: 05-20-2023 ambulatory [facility] Work Phone: Start: 05-20-2023 End: 05-20-2023 Patient encounter procedure [facility] Work Phone: Start: 05-20-2023 End: 05-20-2023 ambulatory Jose Hinkle Facility:[facility] Start: 03-23-2023 End: 03-23-[address] Jose Hinkle Work Phone: [facility] Work Phone: Start: 03-23-2023 End: 03-23-[address] Jose Hinkle Work Phone: [facility] Work Phone: Start: 03-23-2023 End: 03-23-2023 ambulatory [facility] Facility:[facility] Start: 02-13-2023 End: 02-13-2023 Emergency department patient visit LYNDA MORLEY [facility] Start: 01-31-2023 ambulatory JESUS COPELAND [facility] Start: 01-16-2023 Orders Only Jesus Waldrop [employer] Work Phone: [facility] Comment on above: Asthma, unspecified asthma severity, unspecified whether complicated, unspecified whether persistent (Primary Dx) Start: 12-08-2022 End: 12-12-2022 ambulatory LYNDA MORLEY [facility] Start: 12-08-2022 End: 12-08-2022 Office outpatient visit 15 minutes Petar Agustin [employer] Work Phone: [facility] Comment on above: Atypical chest pain (Primary Dx); Acute cough; Wheezing; Elevated blood pressure reading Start: 11-28-2022 Non-patient / Non-visit Dr. Woodrow Hinkle Work Phone: [facility] Start: 11-28-2022 End: 11-28-[address] Jose Hinkle Work Phone: [facility] Work Phone: Start: 11-28-2022 End: 11-28-[address] Jose Hinkle Work Phone: [facility]Neurology Work Phone: Start: 04-02-2022 End: 04-03-2022 ambulatory UNKNOWN PROVIDER Facility:[facility] Start: 07-04-[address] Simba Wagner Facanum lity:[id number] Procedures Date Procedure Procedure Detail Performing Clinician Start: 09-28-2024 Basic metabolic pane l calcium total Sal Hensley MD Work Phone: Start: 09-27-2024 Basic metabolic pane l calcium total Sal Hensley MD Work Phone: Start: 09-26-2024 Basic metabolic pane l calcium total Zia Parker MD Work Phone: Start: 02-17-2024 Colonoscopy Zia Parker MD Work Phone: Start: 03-23-[address] Mariel Hinkle Work Phone: Start: 12-08-2022 Radiologic exam ches t 2 views Petar Agustin CNP Work Phone: Plan of Treatment Date Care Activity Detail Author Start: 02-16-2034 Screening for malign ant neoplasm of colon [facility] Start: 12-04-2030 DTaP/Tdap/Td Vaccine s (3 - Td or Tdap) DTaP/Tdap/Td Vaccines (3 - Td or Tdap) [facility] Start: 01-02-2025 Influenza vaccination Influenz a Vaccine (Season Ended) [facility] Start: 01-03-2024 COVID-19 Vaccine ( season) COVID-19 Vaccine ( season) [facility] Start: 01-02-2023 Influenza vaccination Sequenti al Influenza Vaccine (#1) [facility] Start: 07-07-2015 Administration of he rpes zoster vaccine Zoster Vaccines (1 of 2) [facility] Start: 07-07-2015 Pneumococcal vaccination Pneum ococcal Vaccine (1 of 1 - PCV) [facility] Start: 07-07-2015 Screening for malign ant neoplasm of colon Flexible sigmoidoscopy [facility] Start: 07-07-2015 Zoster Vaccines (1 of 2) Zoster Vacc arabella (1 of 2) [facility] Start: 08-30-1990 IPV Vaccines (2 of 3 - Adult catch-up series) IPV Vaccines (2 of 3 - Adult catch-up series) [facility] Start: 1984 Hepatitis B Vaccines (1 of 3 - 19+ 3-dose series) Hepatitis B Vaccines (1 of 3 - 19+ 3-dose series) [facility] Start: 07-07-1983 Diabetes mellitus screening Diabetes Screening [facility] Start: 07-07-1983 Hepatitis C screening Hepatitis C Sc reening [facility] Start: 1980 HIV screening HIV Screening [facility] Start: 1977 Depression screening using PHQ-9 (Patient Health Questionnaire 9) score Depression Screening (PHQ-2/9) [facility] Start: 1968 History and physical examination, annual for health maintenance Wellness Visit [facility] Start: 01-06-1966 COVID-19 Vaccine (#1) COVID-19 Vacci ne (#1) [facility] Start: 1965 HIV screening HIV Screening [facility] Start: 1965 Lipid panel Lipid Panel [facility] Start: 1965 Prostate specific antigen measurement PSA Level [facility] Start: 1965 Screening for malign ant neoplasm of colon [facility] Start: 1965 Tetanus vaccination Tetanus: Every 1 0yrs [facility] Start: 1965 Yearly Adult Physical Yearly Adult P hysical [facility] End: 01-17-2024 Complete PFT with Pre and Post Bronchodilator Complete PFT with Pre and Post Bronchodilator PFT Routine Asthma, unspecified asthma severity, unspecified whether complicated, unspecified whether persistent 1 Occurrences starting 01/16/2023 until 01/17/2024 [facility] Work Phone: Comment on above: 1 Occurrences starti ng 01/16/2023 until 01/17/2024 Electrocardiogram, 12-lead PRN ACS symptoms Electrocardiogram, 12-lead PRN ACS symptoms ECG Routine As needed until discontinued starting 09/26/2024 [email or web address] Service Area Work Phone: Comment on above: As needed until disc ontinued starting 09/26/2024 Immunizations Immunization Date Immunization Notes Care Provider Fa sreedhar 02-14-2015 influenza virus vaccine, unspecified formulation Zia Parker MD Work Phone: [facility] Work Phone: 08-02-1990 poliovirus vaccine, unspecified formulation Zia Parker MD Work Phone: [facility] Work Phone: Payers Date Payer Category Payer Self-pay 2023 Unknown [id number] 2021 Unknown [id number] 2021 Unknown [id number] 2009 [employer] [facility] [id number] 2009 Unknown [id number] 90 1965 Unknown [id number] 1965 Unknown [id number] 1965 Unknown [id number] 1965 Unknown [id number] 1965 Unknown [id number] 1965 Unknown [id number] Unknown [facility] [employer] [id number] Unknown [id number] Unknown [id number] Unknown [id number] Social History Date Type Detail Facility Tobacco smoking stat [facility] Unknown if ever smoked [facility] Work Phone: Start: 1965 Sex Assigned At Male [facility] Start: 12-08-2022 End: 09-26-2024 Tobacco smoking status NHIS Ex-smoker [facility] History of tobacco use Current smoker [facility] Start: 12-08-2022 End: 09-26-2024 Tobacco use and exposure Smokeless tobacco non-user [facility] Start: 12-08-2022 End: 09-26-2024 Alcohol intake Current drinker of alcohol (finding) [facility] Start: 06-12-2021 End: 09-26-2024 History of Social function [facility] Start: 06-12-2021 End: 09-26-2024 Tobacco use panel [facility] Start: 1965 Sex Assigned At Not on file [facility] Start: 01-07-2021 Gender identity Identifies as male gender (finding) [facility] Start: 01-07-2021 Sexual orientation Choose not to dis close [facility] History of tobacco use Cigarette Smoker [facility] Work Phone: Has the electric, [employer] s, [employer], or water company threatened to shut off services in your home in past 12Mo No [facility] How often to you hav e a drink containing alcohol? 4 or more times a week [facility] Work Phone: How many standard dr inks containing alcohol do you have on a typical day? 1 or 2 [facility] Work Phone: How often do you hav e 6 or more drinks on 1 occasion? Never [facility] Work Phone: How hard is it for y ou to pay for the very basics like food, housing, medical care, and heating Not hard at all [facility] (I/We) worried gatito er (my/our) food would run out before (I/we) got money to buy more. Never true [facility] Work Phone: Start: 09-26-2024 Alcohol Comment 3 beers per day [facility] Work Phone: Start: 09-16-2024 End: 09-26-2024 Exposure to SARS-CoV-2 (event) Not sure [facility] Work Phone: Functional Status Date Assessment Result Facility 09-26-2024 Total score [AUDIT-C] 4 09/27/19 25 3:00 AM EDT Annie Philip RN [facility] Work Phone: 09-26-2024 Patient Health Quest ionnaire 2 item (PHQ-2) [Reported] [facility] Work Phone: 09-26-2024 [facility] s everity rating scale screener - recent [C-SSRS] [facility] Work Phone: [facility] Work Phone: Clinical Notes 11-28-2022 to 09-28-2024 Sal Hensley MD - 09/28/2024 11:39 AM Palak King RN - 09/28/2024 10:51 AM Palak King RN - 09/28/2024 10:51 AM Zaira Hensley MD - 09/27/2024 2:15 PM EDT Note Date & Type Note Facility 09-28-2024 Hospital course Narrative Discharge Diagnosis Cellulitis Issues Requiring Follow-Up PCP Discharge Meds Medication List START taking these medications ciprofloxacin 500 mg tablet; Commonly known as: Cipro; Take 1 tablet (500 mg) by mouth 2 times a day for 10 days. clindamycin 300 mg capsule; Commonly known as: Cleocin; Take 1 capsule (300 mg) by mouth 4 times a day for 10 days. CONTINUE taking these medications albuterol 90 mcg/actuation inhaler amLODIPine 5 mg tablet; Commonly known as: Norvasc ascorbic acid 100 mg tablet; Commonly known as: Vitamin C ergocalciferol 1250 mcg (50,000 units) capsule; Commonly known as: Vitamin D-2 omega-3 fatty acids-fish oil 300-1,000 mg capsule omeprazole [address] capsule; Commonly known as: PriLOSEC rosuvastatin 20 mg tablet; Commonly known as: Crestor Test Results Pending At Discharge Pending Labs No current pending labs. Hospital Course 59-year-old male with #Cellulitis secondary to dog bite Patient stated that he is up-to-date with vaccination immunizations On ciprofloxacin and clindamycin IV Ice packs Supportive care Symptomatic management Pain control Ibuprofen Daily CBC BMP - stable Improving Follow vitals - stable Can transition to p.o. antibiotics upon discharge, he has antibiotics at home to complete for 10 days #Hypertension Amlodipine #Hyperlipidemia Crestor #GERD Protonix DVT prophylaxis addressed, encouraged ambulation and SCDs Pt. Feeling better and can dc today Pertinent Physical Exam At Time of Discharge Physical Exam General Appearance: AAO x 3, Skin: skin color pink, warm, and dry; no suspicious rashes or lesions Eyes : PERRL, EOM's intact ENT: mucous membranes pink and moist Neck: normocephalic Respiratory: lungs clear to auscultation anteriorly; no wheezing, rhonchi, or crackles. Heart: regular rate and rhythm. Abdomen: Nondistended, positive bowel sounds x4, soft, nontender Extremities: no edema, right hand swelling tenderness with improving range of motion. Signs of cellulitis and borders slightly shrinking from before Peripheral pulses: normal x4 extremities Neuro: alert, coherent and conversant, no focal motor deficits Time to dc > 35 minutes Sal Hensley MD documented in this encounter [facility] Work Phone: 09-28-2024 Plan of care note The patient's goals for the shift include The clinical goals for the shift include decrease redness right hand Problem: Pain - Adult Goal: Verbalizes/displays adequate comfort level or baseline comfort level Outcome: Progressing Problem: Safety - Adult Goal: Free from fall injury Outcome: Progressing Problem: Discharge Planning Goal: Discharge to home or other facility with appropriate resources Outcome: Progressing Problem: Chronic Conditions and Co-morbidities Goal: Patient's chronic conditions and co-morbidity symptoms are monitored and maintained or improved Outcome: Progressing [facility] 09-28-2024 Miscellaneous Notes The patient's goals for the shift include The clinical goals for the shift include decrease redness right hand Problem: Pain - Adult Goal: Verbalizes/displays adequate comfort level or baseline comfort level Outcome: Progressing Problem: Safety - Adult Goal: Free from fall injury Outcome: Progressing Problem: Discharge Planning Goal: Discharge to home or other facility with appropriate resources Outcome: Progressing Problem: Chronic Conditions and Co-morbidities Goal: Patient's chronic conditions and co-morbidity symptoms are monitored and maintained or improved Outcome: Progressing The patient's goals for the shift include The clinical goals for the shift include rest Problem: Pain - Adult Goal: Verbalizes/displays adequate comfort level or baseline comfort level Outcome: Progressing Problem: Safety - Adult Goal: Free from fall injury Outcome: Progressing Problem: Discharge Planning Goal: Discharge to home or other facility with appropriate resources Outcome: Progressing Problem: Nutrition Goal: Nutrient intake appropriate for maintaining nutritional needs Outcome: Progressing . The patient's goals for the shift include The clinical goals for the shift include rest Problem: Pain - Adult Goal: Verbalizes/displays adequate comfort level or baseline comfort level Outcome: Progressing Problem: Safety - Adult Goal: Free from fall injury Outcome: Progressing Problem: Discharge Planning Goal: Discharge to home or other facility with appropriate resources Outcome: Progressing Problem: Chronic Conditions and Co-morbidities Goal: Patient's chronic conditions and co-morbidity symptoms are monitored and maintained or improved Outcome: Progressing Problem: Nutrition Goal: Nutrient intake appropriate for maintaining nutritional needs Outcome: Progressing Problem: Pain Goal: Takes deep breaths with improved pain control throughout the shift Outcome: Progressing Goal: Turns in bed with improved pain control throughout the shift Outcome: Progressing Goal: Walks with improved pain control throughout the shift Outcome: Progressing Goal: Performs ADL's with improved pain control throughout shift Outcome: Progressing Goal: Participates in PT with improved pain control throughout the shift Outcome: Progressing Goal: Free from opioid side effects throughout the shift Outcome: Progressing Goal: Free from acute confusion related to pain meds throughout the shift Outcome: Progressing Patient was seen admitted overnight. Reviewed chart and agree with assessment plan Problem: Pain - Adult Goal: Verbalizes/displays adequate comfort level or baseline comfort level Outcome: Progressing Problem: Safety - Adult Goal: Free from fall injury Outcome: Progressing Problem: Discharge Planning Goal: Discharge to home or other facility with appropriate resources Outcome: Progressing Problem: Chronic Conditions and Co-morbidities Goal: Patient's chronic conditions and co-morbidity symptoms are monitored and maintained or improved Outcome: Progressing Problem: Nutrition Goal: Nutrient intake appropriate for maintaining nutritional needs Outcome: Progressing Problem: Pain Goal: Takes deep breaths with improved pain control throughout the shift Outcome: Progressing Goal: Turns in bed with improved pain control throughout the shift Outcome: Progressing Goal: Walks with improved pain control throughout the shift Outcome: Progressing Goal: Performs ADL's with improved pain control throughout shift Outcome: Progressing Goal: Participates in PT with improved pain control throughout the shift Outcome: Progressing Goal: Free from opioid side effects throughout the shift Outcome: Progressing Goal: Free from acute confusion related to pain meds throughout the shift Outcome: Progressing The patient's goals for the shift include get rid of infection The clinical goals for the shift include rest no falls, labs and vs wdl, decrease in infection The patient's goals for the shift include The clinical goals for the shift include rest Over the shift, the patient did not make progress toward the following goals. Barriers to progression include . Recommendations to address these barriers include Problem: Pain - Adult Goal: Verbalizes/displays adequate comfort level or baseline comfort level Outcome: Progressing Problem: Safety - Adult Goal: Free from fall injury Outcome: Progressing Problem: Discharge Planning Goal: Discharge to home or other facility with appropriate resources Outcome: Progressing Problem: Chronic Conditions and Co-morbidities Goal: Patient's chronic conditions and co-morbidity symptoms are monitored and maintained or improved Outcome: Progressing Problem: Nutrition Goal: Nutrient intake appropriate for maintaining nutritional needs Outcome: Progressing Problem: Pain Goal: Takes deep breaths with improved pain control throughout the shift Outcome: Progressing Goal: Turns in bed with improved pain control throughout the shift Outcome: Progressing Goal: Walks with improved pain control throughout the shift Outcome: Progressing Goal: Performs ADL's with improved pain control throughout shift Outcome: Progressing Goal: Participates in PT with improved pain control throughout the shift Outcome: Progressing Goal: Free from opioid side effects throughout the shift Outcome: Progressing Goal: Free from acute confusion related to pain meds throughout the shift Outcome: Progressing . documented in this encounter [facility] Work Phone: 09-27-2024 History of Presen t illness Narrative Carlos Alberto Valencia is a 59 y.o. male on day 1 of admission presenting with Cellulitis. Subjective Pain, swelling and cellulitis in right hand improving from yesterday Objective Physical Exam General Appearance: AAO x 3, Skin: skin color pink, warm, and dry; no suspicious rashes or lesions Eyes : PERRL, EOM's intact ENT: mucous membranes pink and moist Neck: normocephalic Respiratory: lungs clear to auscultation anteriorly; no wheezing, rhonchi, or crackles. Heart: regular rate and rhythm. Abdomen: Nondistended, positive bowel sounds x4, soft, nontender Extremities: no edema, right hand swelling tenderness with improving range of motion. Signs of cellulitis and borders slightly shrinking from before Peripheral pulses: normal x4 extremities Neuro: alert, coherent and conversant, no focal motor deficits Last Recorded Vitals Blood pressure 135/89, pulse 75, temperature 36.2 C (97.2 F), temperature source Temporal, resp. rate 16, height 1.829 m (6'), weight 85 kg (187 lb 6.3 oz), SpO2 96%. Intake/Output last 3 Shifts: I/O last 3 completed shifts: In: 1280 (15.1 mL/kg) [P.O.:480; IV Piggyback:800] Out: - (0 mL/kg) Weight: 85 kg Relevant Results Results for orders placed or performed during the hospital encounter of 09/26/24 (from the past 24 hours) CBC Result Value Ref Range WBC 7.4 4.4 - 11.3 x10*3/uL nRBC 0.0 0.0 - 0.0 /100 WBCs RBC 3.95 (L) 4.50 - 5.90 x10*6/uL Hemoglobin 12.7 (L) 13.5 - 17.5 g/dL Hematocrit 38.3 (L) 41.0 - 52.0 % MCV 97 80 - 100 fL MCH 32.2 26.0 - 34.0 pg MCHC 33.2 32.0 - 36.0 g/dL RDW 12.3 11.5 - 14.5 % Platelets 215 150 - 450 x10*3/uL Basic metabolic panel Result Value Ref Range Glucose 109 (H) 74 - 99 mg/dL Sodium 135 (L) 136 - 145 mmol/L Potassium 3.6 3.5 - 5.3 mmol/L Chloride 103 98 - 107 mmol/L Bicarbonate 25 21 - 32 mmol/L Anion Gap 11 10 - 20 mmol/L Urea Nitrogen 10 6 - 23 mg/dL Creatinine 0.67 0.50 - 1.30 mg/dL eGFR >90 >60 mL/min/1.73m*2 Calcium 9.2 8.6 - 10.3 mg/dL No results found. Scheduled medications Scheduled Medications[1] Continuous medications Continuous Medications[2] PRN medications PRN Medications[3] Assessment & Plan Cellulitis Cellulitis of right upper extremity 59-year-old male with #Cellulitis secondary to dog bite Patient states that he is up-to-date with vaccination immunizations On ciprofloxacin and clindamycin IV Follow-up cultures Ice packs Supportive care Symptomatic management Pain control Ibuprofen Daily CBC BMP Improving Follow vitals #Hypertension Amlodipine #Hyperlipidemia Crestor #GERD Protonix DVT prophylaxis addressed, encourage ambulation and SCDs Continue current management Sal Hensley MD [1] amLODIPine, 5 mg, oral, Daily ciprofloxacin, 400 mg, intravenous, q12h clindamycin, 600 mg, intravenous, q8h ergocalciferol, 1.25 mg, oral, q7 days [START ON 09/29/2024] pantoprazole, 40 mg, oral, q48h rosuvastatin, 20 mg, oral, Daily [2] [3] PRN medications: ibuprofen Per medical team, patient is not yet medically appropriate for discharge; will likely require another 24 hours in the hospital. Dairy Husbandry Worker met with patient at bedside to confirm plan; Patient does not have Medicare, so IM does not apply. Patient's current plan is to return home when medically ready with no Care Transitions needs foreseen. Care Transitions to follow and assist should any new needs arise. AMY Jay 09/26/24 1749 Discharge Planning Living Arrangements Spouse/significant other Support Systems Spouse/significant other Assistance Needed none, no falls, no DME Type of Residence Private residence Number of Stairs to Enter Residence 3 Number of Stairs Within Residence (some to basement, manages well) Do you have animals or pets at home? Yes Type of Animals or Pets 1 dog Who is requesting discharge planning? Provider Home or Post Acute Services None Expected Discharge Disposition Home Does the patient need discharge transport arranged? No Financial Resource Strain How hard is it for you to pay for the very basics like food, housing, medical care, and heating? Not hard Housing Stability In the last 12 months, was there a time when you were not able to pay the mortgage or rent on time? N At any time in the past 12 months, were you homeless or living in a residential (including now)? N Transportation Needs In the past 12 months, has lack of transportation kept you from medical appointments or from getting medications? no In the past 12 months, has lack of transportation kept you from meetings, work, or from getting things needed for daily living? No Patient Choice Patient / Family choosing to utilize agency / facility established prior to hospitalization No Stroke Family Assessment Stroke Family Assessment Needed No Intensity of Service Intensity of Service 0-30 min Met pt at bedside, role of TCC explained. Address, telephone, contact number verified. PCP- - visit july 14. [facility] takes meds as prescribed, able to afford and obtain. Pt has CPAP. Pt lives with , independent in all, no falls, no use of assistive devices. Pt here for IV ATB after a dog bite. Pt had been to urgent care, put on antibiotics when swelling and redness worsened significantly. ADOD 48h. Plan to switch to PO ATB but CT will follow for changes. Current plan- [facility]NN. CT will follow. documented in this encounter [facility] Work Phone: 09-27-2024 Plan of care note The patient's goals for the shift include The clinical goals for the shift include rest Problem: Pain - Adult Goal: Verbalizes/displays adequate comfort level or baseline comfort level Outcome: Progressing Problem: Safety - Adult Goal: Free from fall injury Outcome: Progressing Problem: Discharge Planning Goal: Discharge to home or other facility with appropriate resources Outcome: Progressing Problem: Nutrition Goal: Nutrient intake appropriate for maintaining nutritional needs Outcome: Progressing . [facility] Work Phone: 09-27-2024 Plan of care note The patient's goals for the shift include The clinical goals for the shift include rest Problem: Pain - Adult Goal: Verbalizes/displays adequate comfort level or baseline comfort level Outcome: Progressing Problem: Safety - Adult Goal: Free from fall injury Outcome: Progressing Problem: Discharge Planning Goal: Discharge to home or other facility with appropriate resources Outcome: Progressing Problem: Chronic Conditions and Co-morbidities Goal: Patient's chronic conditions and co-morbidity symptoms are monitored and maintained or improved Outcome: Progressing Problem: Nutrition Goal: Nutrient intake appropriate for maintaining nutritional needs Outcome: Progressing Problem: Pain Goal: Takes deep breaths with improved pain control throughout the shift Outcome: Progressing Goal: Turns in bed with improved pain control throughout the shift Outcome: Progressing Goal: Walks with improved pain control throughout the shift Outcome: Progressing Goal: Performs ADL's with improved pain control throughout shift Outcome: Progressing Goal: Participates in PT with improved pain control throughout the shift Outcome: Progressing Goal: Free from opioid side effects throughout the shift Outcome: Progressing Goal: Free from acute confusion related to pain meds throughout the shift Outcome: Progressing [facility] 09-26-2024 customer care manager Note Patient was seen admitted overnight. Reviewed chart and agree with assessment plan [facility] Work Phone: 09-26-2024 Plan of care note Problem: Pain - Adult Goal: Verbalizes/displays adequate comfort level or baseline comfort level Outcome: Progressing Problem: Safety - Adult Goal: Free from fall injury Outcome: Progressing Problem: Discharge Planning Goal: Discharge to home or other facility with appropriate resources Outcome: Progressing Problem: Chronic Conditions and Co-morbidities Goal: Patient's chronic conditions and co-morbidity symptoms are monitored and maintained or improved Outcome: Progressing Problem: Nutrition Goal: Nutrient intake appropriate for maintaining nutritional needs Outcome: Progressing Problem: Pain Goal: Takes deep breaths with improved pain control throughout the shift Outcome: Progressing Goal: Turns in bed with improved pain control throughout the shift Outcome: Progressing Goal: Walks with improved pain control throughout the shift Outcome: Progressing Goal: Performs ADL's with improved pain control throughout shift Outcome: Progressing Goal: Participates in PT with improved pain control throughout the shift Outcome: Progressing Goal: Free from opioid side effects throughout the shift Outcome: Progressing Goal: Free from acute confusion related to pain meds throughout the shift Outcome: Progressing The patient's goals for the shift include get rid of infection The clinical goals for the shift include rest no falls, labs and vs wdl, decrease in infection [facility] 09-26-2024 History and physical note History Of Present Illness Carlos Alberto Valencia is a 59 y.o. male presenting with cellulitis after dog bite. He was bit on Thursday. Did not see urgent care until late Thursday morning, was prescribed Augmentin (though may not sure if he was going to take it since it is listed as allergy). He came to ER after it seemed like pain and redness were quickly getting worse. He has erythema and swelling of the right hand. He just finished up his IV clindamycin and Cipro and is developing some streaking up from his hand towards his elbow. . Chief Complaint Patient presents with Animal Bite Got bit by a dog 2 days ago. Went to urgent care earlier today and was told to soak his hand in hot water. Was given Augmentin and took one dose. He noticed an increase in swelling and pain Notes from ED physician and nurse reviewed. Case discussed with attending ED physician. Past Medical History Medical History[1] Surgical History Surgical History[2] Recent Surgeries in Hospitalist No cases to display Surgical History[3] Social History Social History Substance and Sexual Activity Alcohol Use Yes Comment: 3 beers per day Social History Substance and Sexual Activity Drug Use Never Social History Substance and Sexual Activity Sexual Activity Not on file Tobacco Use History[4] Food Insecurity: No Food Insecurity (09/26/2024) Hunger Vital Sign Worried About Running Out of Food in the Last Year: Never true Ran Out of Food in the Last Year: Never true Financial Resource Strain: Low Risk (09/26/2024) Overall Financial Resource Strain (CARDIA) Difficulty of Paying Living Expenses: Not hard at all Intimate Partner Violence: Not At Risk (09/26/2024) Humiliation, Afraid, Rape, and Kick questionnaire Fear of Current or Ex-Partner: No Emotionally Abused: No Physically Abused: No Sexually Abused: No Transportation Needs: No Transportation Needs (09/26/2024) PRAPARE - Transportation Lack of Transportation (Medical): No Lack of Transportation (Non-Medical): No Family History Family History[5] Allergies RX Allergies[6] Allergies[7] Last Recorded Vitals Visit Vitals BP 130/81 (BP Location: Left arm) Pulse 65 Temp 37.2 C (98.9 F) (Temporal) Resp 16 Visit Vitals BP 130/81 (BP Location: Left arm) Pulse 65 Temp 37.2 C (98.9 F) (Temporal) Resp 16 Ht 1.829 m (6') Wt 85 kg (187 lb 6.3 oz) SpO2 93% BMI 25.41 kg/m Smoking Status Former BSA 2.08 m Relevant Results Results for orders placed or performed during the hospital encounter of 09/26/24 (from the past 24 hours) CBC and Auto Differential Result Value Ref Range WBC 12.3 (H) 4.4 - 11.3 x10*3/uL nRBC 0.0 0.0 - 0.0 /100 WBCs RBC 4.11 (L) 4.50 - 5.90 x10*6/uL Hemoglobin 13.2 (L) 13.5 - 17.5 g/dL Hematocrit 39.0 (L) 41.0 - 52.0 % MCV 95 80 - 100 fL MCH 32.1 26.0 - 34.0 pg MCHC 33.8 32.0 - 36.0 g/dL RDW 12.3 11.5 - 14.5 % Platelets 220 150 - 450 x10*3/uL Neutrophils % 78.8 40.0 - 80.0 % Immature Granulocytes %, Automated 0.3 0.0 - 0.9 % Lymphocytes % 10.1 13.0 - 44.0 % Monocytes % 10.3 2.0 - 10.0 % Eosinophils % 0.3 0.0 - 6.0 % Basophils % 0.2 0.0 - 2.0 % Neutrophils Absolute 9.64 (H) 1.20 - 7.70 x10*3/uL Immature Granulocytes Absolute, Automated 0.04 0.00 - 0.70 x10*3/uL Lymphocytes Absolute 1.24 1.20 - 4.80 x10*3/uL Monocytes Absolute 1.26 (H) 0.10 - 1.00 x10*3/uL Eosinophils Absolute 0.04 0.00 - 0.70 x10*3/uL Basophils Absolute 0.03 0.00 - 0.10 x10*3/uL Basic metabolic panel Result Value Ref Range Glucose 112 (H) 74 - 99 mg/dL Sodium 134 (L) 136 - 145 mmol/L Potassium 3.6 3.5 - 5.3 mmol/L Chloride 102 98 - 107 mmol/L Bicarbonate 21 21 - 32 mmol/L Anion Gap 15 10 - 20 mmol/L Urea Nitrogen 14 6 - 23 mg/dL Creatinine 0.65 0.50 - 1.30 mg/dL eGFR >90 >60 mL/min/1.73m*2 Calcium 9.3 8.6 - 10.3 mg/dL Imaging No results found. Cardiology, Vascular, and Other Imaging No other imaging results found for the past 2 days I personally reviewed and interpreted the above results, multiple of which contributed to my medical making decisions. Assessment/Plan Cellulitis Wound secondary to dog bite -admit to obs -continue clindamycin and cipro (allergic to penicillins) -tylenol and ibuprofen for pain HTN -amlodipine HLD -crestor GERD -protonicx Fluids: Nutrition: Bowel prophylaxis: DVT prophylaxis: Keturah Centeno MD [1] History reviewed. No pertinent past medical history. [2] History reviewed. No pertinent surgical history. [3] History reviewed. No pertinent surgical history. [4] Social History Tobacco Use Smoking Status Former Types: Cigarettes Smokeless Tobacco Never [5] No family history on file. [6] Allergies Allergen Reactions Augmentin [Amoxicillin-Pot Clavulanate] Diarrhea and GI Upset Flagyl [Metronidazole] Hives [7] Allergies Allergen Reactions Augmentin [Amoxicillin-Pot Clavulanate] Diarrhea and GI Upset Flagyl [Metronidazole] Hives [facility] Work Phone: 09-26-2024 History and physical note History Of Present Illness Carlos Alberto Valencia is a 59 y.o. male presenting with cellulitis after dog bite. He was bit on Thursday. Did not see urgent care until late Thursday morning, was prescribed Augmentin (though may not sure if he was going to take it since it is listed as allergy). He came to ER after it seemed like pain and redness were quickly getting worse. He has erythema and swelling of the right hand. He just finished up his IV clindamycin and Cipro and is developing some streaking up from his hand towards his elbow. . Chief Complaint Patient presents with Animal Bite Got bit by a dog 2 days ago. Went to urgent care earlier today and was told to soak his hand in hot water. Was given Augmentin and took one dose. He noticed an increase in swelling and pain Notes from ED physician and nurse reviewed. Case discussed with attending ED physician. Past Medical History Medical History[1] Surgical History Surgical History[2] Recent Surgeries in Hospitalist No cases to display Surgical History[3] Social History Social History Substance and Sexual Activity Alcohol Use Yes Comment: 3 beers per day Social History Substance and Sexual Activity Drug Use Never Social History Substance and Sexual Activity Sexual Activity Not on file Tobacco Use History[4] Food Insecurity: No Food Insecurity (09/26/2024) Hunger Vital Sign Worried About Running Out of Food in the Last Year: Never true Ran Out of Food in the Last Year: Never true Financial Resource Strain: Low Risk (09/26/2024) Overall Financial Resource Strain (CARDIA) Difficulty of Paying Living Expenses: Not hard at all Intimate Partner Violence: Not At Risk (09/26/2024) Humiliation, Afraid, Rape, and Kick questionnaire Fear of Current or Ex-Partner: No Emotionally Abused: No Physically Abused: No Sexually Abused: No Transportation Needs: No Transportation Needs (09/26/2024) PRAPARE - Transportation Lack of Transportation (Medical): No Lack of Transportation (Non-Medical): No Family History Family History[5] Allergies RX Allergies[6] Allergies[7] Last Recorded Vitals Visit Vitals BP 130/81 (BP Location: Left arm) Pulse 65 Temp 37.2 C (98.9 F) (Temporal) Resp 16 Visit Vitals BP 130/81 (BP Location: Left arm) Pulse 65 Temp 37.2 C (98.9 F) (Temporal) Resp 16 Ht 1.829 m (6') Wt 85 kg (187 lb 6.3 oz) SpO2 93% BMI 25.41 kg/m Smoking Status Former BSA 2.08 m Relevant Results Results for orders placed or performed during the hospital encounter of 09/26/24 (from the past 24 hours) CBC and Auto Differential Result Value Ref Range WBC 12.3 (H) 4.4 - 11.3 x10*3/uL nRBC 0.0 0.0 - 0.0 /100 WBCs RBC 4.11 (L) 4.50 - 5.90 x10*6/uL Hemoglobin 13.2 (L) 13.5 - 17.5 g/dL Hematocrit 39.0 (L) 41.0 - 52.0 % MCV 95 80 - 100 fL MCH 32.1 26.0 - 34.0 pg MCHC 33.8 32.0 - 36.0 g/dL RDW 12.3 11.5 - 14.5 % Platelets 220 150 - 450 x10*3/uL Neutrophils % 78.8 40.0 - 80.0 % Immature Granulocytes %, Automated 0.3 0.0 - 0.9 % Lymphocytes % 10.1 13.0 - 44.0 % Monocytes % 10.3 2.0 - 10.0 % Eosinophils % 0.3 0.0 - 6.0 % Basophils % 0.2 0.0 - 2.0 % Neutrophils Absolute 9.64 (H) 1.20 - 7.70 x10*3/uL Immature Granulocytes Absolute, Automated 0.04 0.00 - 0.70 x10*3/uL Lymphocytes Absolute 1.24 1.20 - 4.80 x10*3/uL Monocytes Absolute 1.26 (H) 0.10 - 1.00 x10*3/uL Eosinophils Absolute 0.04 0.00 - 0.70 x10*3/uL Basophils Absolute 0.03 0.00 - 0.10 x10*3/uL Basic metabolic panel Result Value Ref Range Glucose 112 (H) 74 - 99 mg/dL Sodium 134 (L) 136 - 145 mmol/L Potassium 3.6 3.5 - 5.3 mmol/L Chloride 102 98 - 107 mmol/L Bicarbonate 21 21 - 32 mmol/L Anion Gap 15 10 - 20 mmol/L Urea Nitrogen 14 6 - 23 mg/dL Creatinine 0.65 0.50 - 1.30 mg/dL eGFR >90 >60 mL/min/1.73m*2 Calcium 9.3 8.6 - 10.3 mg/dL Imaging No results found. Cardiology, Vascular, and Other Imaging No other imaging results found for the past 2 days I personally reviewed and interpreted the above results, multiple of which contributed to my medical making decisions. Assessment/Plan Cellulitis Wound secondary to dog bite -admit to obs -continue clindamycin and cipro (allergic to penicillins) -tylenol and ibuprofen for pain HTN -amlodipine HLD -crestor GERD -protonicx Fluids: Nutrition: Bowel prophylaxis: DVT prophylaxis: Keturah Centeno MD [1] History reviewed. No pertinent past medical history. [2] History reviewed. No pertinent surgical history. [3] History reviewed. No pertinent surgical history. [4] Social History Tobacco Use Smoking Status Former Types: Cigarettes Smokeless Tobacco Never [5] No family history on file. [6] Allergies Allergen Reactions Augmentin [Amoxicillin-Pot Clavulanate] Diarrhea and GI Upset Flagyl [Metronidazole] Hives [7] Allergies Allergen Reactions Augmentin [Amoxicillin-Pot Clavulanate] Diarrhea and GI Upset Flagyl [Metronidazole] Hives documented in this encounter [facility] Work Phone: 09-26-2024 Plan of care note The patient's goals for the shift include The clinical goals for the shift include rest Over the shift, the patient did not make progress toward the following goals. Barriers to progression include . Recommendations to address these barriers include Problem: Pain - Adult Goal: Verbalizes/displays adequate comfort level or baseline comfort level Outcome: Progressing Problem: Safety - Adult Goal: Free from fall injury Outcome: Progressing Problem: Discharge Planning Goal: Discharge to home or other facility with appropriate resources Outcome: Progressing Problem: Chronic Conditions and Co-morbidities Goal: Patient's chronic conditions and co-morbidity symptoms are monitored and maintained or improved Outcome: Progressing Problem: Nutrition Goal: Nutrient intake appropriate for maintaining nutritional needs Outcome: Progressing Problem: Pain Goal: Takes deep breaths with improved pain control throughout the shift Outcome: Progressing Goal: Turns in bed with improved pain control throughout the shift Outcome: Progressing Goal: Walks with improved pain control throughout the shift Outcome: Progressing Goal: Performs ADL's with improved pain control throughout shift Outcome: Progressing Goal: Participates in PT with improved pain control throughout the shift Outcome: Progressing Goal: Free from opioid side effects throughout the shift Outcome: Progressing Goal: Free from acute confusion related to pain meds throughout the shift Outcome: Progressing . [facility] Work Phone: 09-26-2024 Hospital Discharg e instructions Zia Parker MD - 09/26/2024 12:41 AM EDT Will free to return to the emergency department with any additional concerns. I would recommend following up with your primary care physician. The following attachments cannot be sent through Care Everywhere.Animal Bites ED ([place])Cellulitis (Skin Infection), Adult ED ([place])Cellulitis and erysipelas (skin infections) ([place])documented in this encounter [facility] Work Phone: 09-26-2024 Physician Emergency department Note 59-year-old male presents with a chief complaint of dog bite dorsal aspect of the right hand yesterday. He was watching his neighbors dog over at his house when there was an altercation between one of his dogs and the neighbors dogs. He got in the middle of it and was bitten on his right hand he thinks by the neighbors dog. Tetanus is up-to-date. He went to urgent care today around 11 AM and was placed on Augmentin. The patient has a known adverse reaction to Augmentin and shortly after he took it he started having diarrhea. Review of Systems Physical Exam Vitals and nursing note reviewed. Constitutional: Appearance: He is not ill-appearing or toxic-appearing. HENT: Head: Normocephalic and atraumatic. Right Ear: Tympanic membrane normal. Left Ear: Tympanic membrane normal. Nose: Nose normal. Mouth/Throat: Mouth: Mucous membranes are moist. Pharynx: No oropharyngeal exudate or posterior oropharyngeal erythema. Eyes: Extraocular Movements: Extraocular movements intact. Conjunctiva/sclera: Conjunctivae normal. Pupils: Pupils are equal, round, and reactive to light. Cardiovascular: Rate and Rhythm: Normal rate and regular rhythm. Pulmonary: Effort: Pulmonary effort is normal. No respiratory distress. Breath sounds: Normal breath sounds. No wheezing, rhonchi or rales. Abdominal: General: There is no distension. Palpations: Abdomen is soft. There is no mass. Tenderness: There is no abdominal tenderness. There is no guarding. Musculoskeletal: General: No deformity. Normal range of motion. Right hand: Swelling and tenderness present. Cervical back: Neck supple. No tenderness. Comments: Patient has 2 close puncture wounds on the dorsal aspect of his right hand with tenderness erythema and swelling. Otherwise normal function about the right hand and wrist. Skin: General: Skin is warm and dry. Neurological: General: No focal deficit present. Mental Status: He is alert and oriented to person, place, and time. Psychiatric: Mood and Affect: Mood normal. Labs Reviewed - No data to display No orders to display Procedures Medical Decision Making 59-year-old male presents with a chief complaint of dog bite dorsal aspect of the right hand yesterday. He was watching his neighbors dog over at his house when there was an altercation between one of his dogs and the neighbors dogs. He got in the middle of it and was bitten on his right hand he thinks by the neighbors dog. Tetanus is up-to-date. He went to urgent care today around 11 AM and was placed on Augmentin. The patient has a known adverse reaction to Augmentin and shortly after he took it he started having diarrhea. He has increased swelling and tenderness to the right hand. He has been soaking it in hot water all day today per the instruction from the urgent care. I have ordered clindamycin 600 mg IVPB and Cipro 400 mg IVPB and we will discharge him with prescriptions for those 2 medications. He was bit on Thursday. Did not see urgent care until late Thursday morning, was prescribed Augmentin and was not able to grain picker his antibiotics until Thursday evening. He has a known intolerance to Augmentin. He has erythema and swelling of the right hand. He just finished up his IV clindamycin and Cipro and is developing some streaking up from his hand towards his elbow. I think he would benefit from continued IV antibiotics. Will admit to the hospitalist service. DDx: Dog bite, cellulitis, tenosynovitis Diagnoses as of 09/26/24 0208 Cellulitis of right upper extremity Dog bite, initial encounter Zia Parker MD 09/26/24 0041 Zia Parker MD 09/26/24 0210 [facility] Work Phone: 09-26-2024 Emergency department Note 59-year-old male presents with a chief complaint of dog bite dorsal aspect of the right hand yesterday. He was watching his neighbors dog over at his house when there was an altercation between one of his dogs and the neighbors dogs. He got in the middle of it and was bitten on his right hand he thinks by the neighbors dog. Tetanus is up-to-date. He went to urgent care today around 11 AM and was placed on Augmentin. The patient has a known adverse reaction to Augmentin and shortly after he took it he started having diarrhea. Review of Systems Physical Exam Vitals and nursing note reviewed. Constitutional: Appearance: He is not ill-appearing or toxic-appearing. HENT: Head: Normocephalic and atraumatic. Right Ear: Tympanic membrane normal. Left Ear: Tympanic membrane normal. Nose: Nose normal. Mouth/Throat: Mouth: Mucous membranes are moist. Pharynx: No oropharyngeal exudate or posterior oropharyngeal erythema. Eyes: Extraocular Movements: Extraocular movements intact. Conjunctiva/sclera: Conjunctivae normal. Pupils: Pupils are equal, round, and reactive to light. Cardiovascular: Rate and Rhythm: Normal rate and regular rhythm. Pulmonary: Effort: Pulmonary effort is normal. No respiratory distress. Breath sounds: Normal breath sounds. No wheezing, rhonchi or rales. Abdominal: General: There is no distension. Palpations: Abdomen is soft. There is no mass. Tenderness: There is no abdominal tenderness. There is no guarding. Musculoskeletal: General: No deformity. Normal range of motion. Right hand: Swelling and tenderness present. Cervical back: Neck supple. No tenderness. Comments: Patient has 2 close puncture wounds on the dorsal aspect of his right hand with tenderness erythema and swelling. Otherwise normal function about the right hand and wrist. Skin: General: Skin is warm and dry. Neurological: General: No focal deficit present. Mental Status: He is alert and oriented to person, place, and time. Psychiatric: Mood and Affect: Mood normal. Labs Reviewed - No data to display No orders to display Procedures Medical Decision Making 59-year-old male presents with a chief complaint of dog bite dorsal aspect of the right hand yesterday. He was watching his neighbors dog over at his house when there was an altercation between one of his dogs and the neighbors dogs. He got in the middle of it and was bitten on his right hand he thinks by the neighbors dog. Tetanus is up-to-date. He went to urgent care today around 11 AM and was placed on Augmentin. The patient has a known adverse reaction to Augmentin and shortly after he took it he started having diarrhea. He has increased swelling and tenderness to the right hand. He has been soaking it in hot water all day today per the instruction from the urgent care. I have ordered clindamycin 600 mg IVPB and Cipro 400 mg IVPB and we will discharge him with prescriptions for those 2 medications. He was bit on Thursday. Did not see urgent care until late Thursday morning, was prescribed Augmentin and was not able to grain picker his antibiotics until Thursday evening. He has a known intolerance to Augmentin. He has erythema and swelling of the right hand. He just finished up his IV clindamycin and Cipro and is developing some streaking up from his hand towards his elbow. I think he would benefit from continued IV antibiotics. Will admit to the hospitalist service. DDx: Dog bite, cellulitis, tenosynovitis Diagnoses as of 09/26/24 0208 Cellulitis of right upper extremity Dog bite, initial encounter Zia Parker MD 09/26/24 0041 Zia Parker MD 09/26/24 0210 documented in this encounter [facility] Work Phone: 12-08-2022 Instructions Petar Agustin CNP - 12/08/2022 2:12 PM EDT Thank you for [place] [facility] [place] needs today. Thank you for your service. Your chest is negative for infiltrates. I sent in prednisone. Take early with food to prevent insomnia and indigestion. Continue use of your inhaler. Follow up with your doctor for elevated blood pressure reading. Follow up as needed persistent/worsening of cough. The following attachments cannot be sent through Care Everywhere.Cough ([place]azi)documented in this encounter [facility] 12-08-2022 History of Presen t illness Narrative Images from the original note were not included. Patient Name: [facility] Location: [facility] [address] [place] [id number] Date Of : Date Of Visit: 1965 12/08/2022 MRN# Provider: [id number] Petar Agustin CNP Chief Complaint Patient presents [...] times with wheezing and SOB. Using albuterol. AL sent client to clinic for chest film. [...] visit. Patient Instructions Thank you for choosing [facility] [place] needs today. Thank you for your service. Your chest is negative for infiltrates. I sent in prednisone. Take early with food to prevent insomnia and indigestion. Continue use of your inhaler. Follow up with your doctor for elevated blood pressure reading. Follow up as needed persistent/worsening of cough. documented in this encounter [facility] 11-28-2022 [facility] No assessment inform ation available [facility] Work Phone: Evaluation note Diagnosis Atypical chest pain- Primary Other chest pain Acute cough Wheezing Elevated blood pressure reading Elevated blood pressure reading without diagnosis of hypertension [facility] Asthma, unspecified asthma severity, unspecified whether complicated, unspecified whether persistent- Primary [facility] Cellulitis- Primary Cellulitis and abscess of unspecified site Cellulitis of right upper extremity Dog bite, initial encounter Cellulitis of right upper extremity documented in this encounter [facility] Work Phone: Summary Purpose Family History No Family History Records FoundNo Family History Records FoundNo Family History Records FoundNo Family History Records FoundNo Family History Records FoundNo Family History Records FoundNo Family History Records Found Advance Directives No Advanced Directives Records Found Date Activated Date Inactivated Comments 09/26/2024 2:41 AM Question Answer Comments Plan of Care: Code Status Discussion Completed Decision Maker: Patient Chief Complaint and Reason for Visit Chief Complaint ASTHMA Asthma Chief Complaint ASTHMA Asthma CHRONIC SINUSITIS Chief Complaint CHRONIC SINUSITIS ENLARGED HEART, CP Reason for Referral Specialty Diagnoses / Procedures Referred By Contac t Referred To Contact Pulmonology Diagnoses Asthma, unspecified asthma severity, unspecified whether complicated, unspecified whether persistent Procedures Complete PFT with Pre and Post Bronchodilator Jesus Copeland, [employer] [address] [facility] [place] [id number] Referral ID Status Reason Start Date Expiration Date V isits Requested Visits Authorized [id number] Authorized 01/16/2023 01/16/2024 1 1 Additional Source Comments (unrecognized sect ion and content) No Status Records FoundNo Status Records FoundNo Status Records FoundNo Status Records FoundNo Status Records FoundNo Status Records FoundNo Status Records Found INFORMATION SOURCE (unrecogn ized section and content) DATE CREATED AUTHOR 02/24/2022 [facility] DATE CREATED AUTHOR AUTHOR'S ORGANIZ ATION 04/04/2022 [facility] DATE CREATED AUTHOR AUTHOR'S ORGANIZ ATION 12/13/2022 [facility] DATE CREATED AUTHOR AUTHOR'S ORGANIZ ATION 02/20/2023 [facility] DATE CREATED AUTHOR AUTHOR'S ORGANIZ ATION 03/04/2023 [facility] DATE CREATED AUTHOR AUTHOR'S ORGANIZ ATION 02/03/2024 [facility] DATE CREATED AUTHOR AUTHOR'S ORGANIZ ATION 09/30/2024 [facility] Care Teams (unrecognized sec tion and content) Team Status: Active Member Role Status Dates Out of Town Doctor Family Provider Active [facility] Primary Care Provider Active Team Status: Active Member Role Status Dates Dr. Jose Hinkle DO Referring Provider, Other Provider Active [facility] Primary Care Provider Active Dr. Chalres Wagner DO Attending Provider Active Team Status: Inactive Member Role Status Dates Dr. 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 Waqar Manuel MD Attending Provider, Refe rring Provider Active Team Status: Active Member Role Status Dates [facility] Primary Care Provider Active Dr. Sterling Ch MD Attending Provider Active Team Status: Inactive Member Role Status Dates [facility] Primary Care Provider Active Dr. 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 Relationship Specialty Start Date End Date Lynda Hurtado, WARP K[employer]IT[employer] [address] [place] [address] PCP - General 02/14/21 Goals (unrecognized section and content) Goals may be documented in a n alternate sectionGoals may be documented in an alternate sectionGoals may be documented in an alternate section Reason for Visit (unrecogniz ed section and content) Reason Comments URI Congestion, producti ve cough, x 2 weeks, worsening over cough, hx of bronchitis, fatigue, drainage, tightness in chest, burning in chest Reason Comments Animal Bite Got bit by a dog 2 d ays ago. Went to urgent care earlier today and was told to soak his hand in hot water. Was given Augmentin and took one dose. He noticed an increase in swelling and pain Specialty Diagnoses / Procedures Referred By Bryson snow Referred To Contact Diagnoses Cellulitis of right upper extremity Dog bite, initial encounter animal bite Procedures ed visit Keturah Centeno MD [address] [place] [address] Phone: tel: fax: [facility] [address] [place] [address] Phone: tel: Referral ID Status Reason Start Date Expiration Date Visits Re quested Visits Authorized [id number] 1 1 Scheduled Active and Recently Administ ered Medications (unrecognized section and content) Medication Order 09/26/2024 09/27/2024 09/28/2024 amLODIPine (Norvasc) tablet 5 mg 5 mg, oral, Daily, First dose on Thu09/26/24 at 0900 0851 (Given - Provider: Kathryn Teresa RN) 0858 (Given - Provider: Kaylen Garcia RN) 0850 (Given - Provider: Shey Knig RN) ciprofloxacin (Cipro) 400 mg in dextrose 5% IV 200 mL (COMPLETED) 400 mg, intravenous, at 200 mL/hr, Administer over 60 Minutes, Once, On Thu09/26/24 at 0035, For 1 dose, premix bag, Dosing of this medication varies based on severity of illness. Does this patient have sepsis or concern for sepsis (probable or documented infection plus systemic manifestations of infection)? No, Suspected Indication (Select all that apply): Cellulitis, Skin and Soft Tissue, Indications: Cellulitis, Skin and Soft Tissue 0049 (New Bag - Provider: Shannon Nettles RN)0155 (Stopped - Provider: Kaylah Castellanos RN) ciprofloxacin (Cipro) 400 mg in dextrose 5% IV 200 mL 400 mg, intravenous, at 200 mL/hr, Administer over 60 Minutes, Every 12 hours, First dose (after last reorder) on Thu09/26/24 at 1200, premix bag, Dosing of this medication varies based on severity of illness. Does this patient have sepsis or concern for sepsis (probable or documented infection plus systemic manifestations of infection)? No, Suspected Indication (Select all that apply): Cellulitis, Skin and Soft Tissue, Indications: Cellulitis, Skin and Soft Tissue 1207 (New Bag - Provider: Kathryn Teresa RN)1331 (Stopped - Provider: Kathryn Teresa RN)2305 (New Bag - Provider: Dayanna Villavicencio RN) 0157 (Stopped - Provider: Dayanna Villavicencio RN)1208 (New Bag - Provider: Kaylen Garcia RN)1410 (Stopped - Provider: Kaylen Garcia RN)2306 (New Bag - Provider: Cynthia Ferrera RN) 0019 (Stopped - Provider: Cynthia Ferrera RN)1108 (New Bag - Provider: Shey King RN)1219 (Stopped - Provider: Shey King RN) clindamycin (Cleocin) 600 mg in dextrose 5% IV 50 mL (COMPLETED) 600 mg, intravenous, at 100 mL/hr, Administer over 30 Minutes, Once, On Thu09/26/24 at 0035, For 1 dose, premix bag, Dosing of this medication varies based on severity of illness. Does this patient have sepsis or concern for sepsis (probable or documented infection plus systemic manifestations of infection)? No, Suspected Indication (Select all that apply): Cellulitis, Skin and Soft Tissue, Indications: Cellulitis, Skin and Soft Tissue 0057 (New Bag - Provider: Shannon Nettles RN)0124 (Stopped - Provider: Kaylah Castellanos RN) clindamycin (Cleocin) 600 mg in dextrose 5% IV 50 mL 600 mg, intravenous, at 100 mL/hr, Administer over 30 Minutes, Every 8 hours, First dose (after last reorder) on Thu09/26/24 at 0800, premix bag, Dosing of this medication varies based on severity of illness. Does this patient have sepsis or concern for sepsis (probable or documented infection plus systemic manifestations of infection)? No, Suspected Indication (Select all that apply): Cellulitis, Skin and Soft Tissue, Type of Therapy: Empiric, Indications: Cellulitis, Skin and Soft Tissue 0851 (New Bag - Provider: Kathryn Teresa RN)0930 (Stopped - Provider: Kathryn Teresa RN)1613 (New Bag - Provider: Kathryn Teresa RN)1645 (Stopped - Provider: Kathryn Teresa RN) 0024 (New Bag - Provider: Dayanna Villavicencio RN)0157 (Stopped - Provider: Dayanna Villavicencio RN)0747 (New Bag - Provider: Shey King RN)0848 (Stopped - Provider: Shey King, CORNELIUS)1533 (New Bag - Provider: Kaylen Garcia RN)1641 (Stopped - Provider: Shey King RN) 0019 (New Bag - Provider: Cynthia Ferrera RN)0055 (Stopped - Provider: Cynthia Ferrera RN)0800 (New Bag - Provider: Shey King RN)0849 (Stopped - Provider: Shey King RN)1600 (Due) ergocalciferol (Vitamin D-2) capsule 1.25 mg 1.25 mg, oral, Every 7 days, First dose on Thu09/26/24 at 0900 0927 (Given - Provider: Kathryn Teresa RN) pantoprazole (ProtoNix) EC tablet 40 mg (CANCELED) 40 mg, oral, Daily before breakfast, First dose on Thu09/26/24 at 0700, Do not crush, chew, or split. 0632 (Given - Provider: Annie Philip RN) 0852 (Not Given - Provider: Marily Barone - Reason: Patient/family refused) pantoprazole (ProtoNix) EC tablet 40 mg 40 mg, oral, Every 48 hours, First dose (after last modification) on Thu09/29/24 at 0700, Do not crush, chew, or split. rosuvastatin (Crestor) tablet 20 mg 20 mg, oral, Daily, First dose on Thu09/26/24 at 0900 0851 (Given - Provider: Kathryn Teresa RN) 0858 (Given - Provider: Kaylen Garcia RN) 0850 (Given - Provider: Shey King RN) zolpidem (Ambien) tablet 10 mg (COMPLETED) 10 mg, oral, Once, On Thu09/26/24 at 2215, For 1 dose 0024 (Given - Provider: Dayanna Villavicencio RN - Comment: pt request) PRN Medication Order 09/26/2024 09/27/2024 09/28/2024 ibuprofen tablet 400 mg 400 mg, oral, Every 6 hours PRN, pain mild (1-3), first line, pain moderate (4-6), first line, Starting on Thu09/26/24 at 0315, May administer with food to reduce GI upset. 0927 (Given - Provider: Kathryn Teresa, CORNELIUS) 0957 (Given - Provider: Kaylen Garcia RN) zolpidem (Ambien) tablet 5 mg 5 mg, oral, Nightly PRN, sleep, Starting on Thu09/27/24 at 1948 0019 (Given - Provider: Cynthia Ferrera RN) FOR RECORDS PERTAINING TO PATIENTS WHO ARE [...] BE BASED ON THE PRIMARY CLINICAL RECORDS. [employer] [facility]. provides no warranty or guarantee of the accuracy or completeness of information in this document.
== END 2024-11-20 14:31 | disposition home or self-care (01) ==
LOC: ED 14:27
PROVIDERS: Emergency Provider Emergency Medicine; Visit Provider Emergency Medicine
DX: S05.00XA Injury of conjunctiva and corneal abrasion without foreign body, unspecified eye, initial encounter (principal); T15.91XA Foreign body on external eye, part unspecified, right eye, initial encounter; W44.9XXA Unspecified foreign body entering into or through a natural orifice, initial encounter
CPT/HCPCS: 65222; 99284; A4216

== ENCOUNTER → 2024-12-15 | Outpatient (CLI) | payer OTHER, SELFPAY ==
--- NOTE | 2024-12-15 15:30 | MRI_ITS ---
PROCEDURE: UPPER EXT JOINT ONLY(ROUTINE) 12/15/2024 REASON FOR EXAM: PAIN AND SWELLING TECHNIQUE: UPPER EXT JOINT ONLY(ROUTINE) Multiplanar and multisequence images were obtained without IV contrast administration. COMPARISON: None FINDINGS: Motion degraded exam. TFCC complex is within normal limits. No definite intrinsic ligament tear. Moderate tenosynovitis of the 2nd and 3rd extensor compartments at the level of the carpus/distal radius compatible with distal intersection syndrome. Mild superimposed extensor pollicis longus tendinopathy at the level of Aga's tubercle. Overlying dorsal soft tissue swelling. Remaining extensor tendons are intact. Flexor tendons are intact. Flexor retinaculum, median nerve and ulnar nerve are within normal limits. Negative for fracture or marrow replacement. Small subcortical cyst and low- level marrow edema within Aga's tubercle which may be reactive from the overlying extensor tenosynovitis. Minimal degenerative changes scattered throughout the carpus. No sizeable joint effusion. Small ganglia along the volar aspect of the distal radius, conglomerate measuring 4 x 22 x 6 mm (AP, TV and CC dimensions). 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 Reading Location: [facility]
== END | disposition home or self-care (01) ==
LOC: OPMRI 15:17
PROVIDERS: Referring Provider Nurse Practitioner; Visit Provider Nurse Practitioner
DX: M25.542 Pain in joints of left hand (principal); M25.532 Pain in left wrist
CPT/HCPCS: 73221